=== PATIENT | male | born 1985 | race Caucasian/White ===

== ENCOUNTER 2017-06-14 01:20 | Observation (INO) | payer MEDICAID, SELFPAY ==
[2017-06-14] VITALS (9 sets, daily range): BP systolic 96–145; BP diastolic 57–107; PULSE 70–108; RESP 14–20; TEMP 36.5–36.9; O2SAT 96–100; BMI 20.1; BMI 19.5
--- NOTE | 2017-06-14 01:26 | HMH.EDGENADL ---
ED Disposition Clinical Impression: Exacerbation of Crohn's disease Disposition: Still a Patient Condition on Discharge: Fair - Critical Care Critical Care Time: No Attestation: On , the high probability of a clinically significant, sudden or life threatening deterioration of the following system(s) required my full and direct attention, intervention and personal management. The time I documented below is in addition to time spent performing reported procedures but includes the following listed in this critical care notation. Medical Decision Making Vital Signs: 06/14/17 01:26 Temperature 97.7 F Temperature Source Oral Pulse Rate [Left Radial] 85 Respiratory Rate 20 Blood Pressure [Right Arm] 145/107 Blood Pressure Mean [Right Arm] 119 Blood Pressure Source [Right Arm] Automatic Cuff Blood Pressure Position [Right Arm] Sitting 02 Sat by Pulse Oximetry 100 Oxygen Delivery Method Room Air - Lab Data Lab Results 06/14/17 01:45: WBC 7.1, RBC 4.66, Hgb 13.5 L, Hct 42.9, MCV 92.1, MCH 29.0, MCHC 31.5 L, RDW 13.3, Plt Count 310, MPV 7.4, Neut % (Auto) 65.1, Lymph % (Auto) 27.4, [place] % (Auto) 6.2, Eos % (Auto) 1.0, Baso % (Auto) 0.3, Neut # (Auto) 4.6, Lymph # (Auto) 2.0, [place] # (Auto) 0.4, Eos # (Auto) 0.1, Baso # (Auto) 0.0 06/14/17 01:45: Sodium 139, Potassium 3.7, Chloride 106, Carbon Dioxide 28, Anion Gap 8.7, BUN 9, Creatinine 0.79, Estimated Creat Clear 107, Estimated GFR 113, Est GFR ( Amer) 137, Glucose 89, Calcium 8.3 L, Total Bilirubin 0.2, AST 7 L, ALT 21, Alkaline Phosphatase 74, Total Protein 7.6, Albumin 3.9, Globulin 3.7 H, Albumin/Globulin Ratio 1.1, Amylase 53 06/14/17 01:45: Lipase 139 Result diagrams: 06/14/17 01:45 06/14/17 01:45 Orders (Tests/Meds): ED MEDICATIONS Generic Name Dose Route Start Last Admin Trade Name Freq PRN Reason Stop Dose Admin Non-Formulary Medication 12 mcg 06/14/17 05:15 Fentanyl [Duragesic] TD 07/14/17 05:14 Q72H DAVID Oxycodone/Acetaminophen 1 each 06/14/17 05:15 Percocet 7.5/325mg Tablet PO 07/14/17 05:14 Q6HP PRN pain Discontinued Medications Generic Name Dose Route Start Last Admin Trade Name Freq PRN Reason Stop Dose Admin Diatrizoate Meglum/Diatrizoate Sod 30 ml 06/14/17 01:45 06/14/17 01:46 Gastrografin 66%-10% 30ml PO 06/14/17 01:46 30 ml ONCE ONE Administration Diatrizoate Meglum/Diatrizoate Sod 30 ml 06/14/17 04:19 06/14/17 04:25 Rad-Gastrografin (66%-10%);120ml PO 06/14/17 04:20 30 ml ONCE ONE Administration Iopamidol 75 ml 06/14/17 04:19 06/14/17 04:25 [id number]; 75ml Vial IV 06/14/17 04:20 75 ml ONCE ONE Administration Methylprednisolone Sodium Succinate 125 mg 06/14/17 05:07 06/14/17 05:10 Solu-Medrol 125mg/2ml Vial IV 06/14/17 05:08 125 mg ONCE ONE Administration Morphine Sulfate 5 mg 06/14/17 01:49 06/14/17 01:54 Morphine 5mg/Ml Syringe IV 06/14/17 01:50 5 mg ONCE ONE Administration Morphine Sulfate 4 mg 06/14/17 02:21 06/14/17 02:34 Morphine 4mg/Ml Syringe IV 06/14/17 02:22 4 mg ONCE ONE Administration Ondansetron HCl 4 mg 06/14/17 01:49 06/14/17 01:54 Zofran 4mg/2ml Vial IV 06/14/17 01:50 4 mg ONCE ONE Administration Sodium Chloride 1,000 ml 06/14/17 02:21 06/14/17 02:33 Sod Chlor 0.9% 1000ml Bag IV 06/14/17 02:22 1,000 ml BOLUS ONE Administration Sodium Chloride 10 ml 06/14/17 04:19 06/14/17 04:25 Rad-Saline Flush 10ml Syringe IV 06/14/17 04:20 10 ml ONCE ONE Administration ORDERS Category Date Time Status CT abdomen pelvis w con Stat Cat Scan 06/14/17 01:40 Taken - CT Data CT Scan: Abdomen, Pelvis Time Received: 04:[address] Reviewed: Yes: I have viewed the radiologist's interpretation Findings Narrative: CT scan interpreted by [facility] radiologist. Faxed report received and reviewed: Segment of marked edematous mucosal wall thickening in the posterior mid upper ri
--- NOTE | 2017-06-14 01:30 | ED_ITS ---
ED Disposition Clinical Impression: Exacerbation of Crohn's disease Disposition: Still a Patient Condition on Discharge: Fair - Critical Care Critical Care Time: No Attestation: On , the high probability of a clinically significant, sudden or life threatening deterioration of the following system(s) required my full and direct attention, intervention and personal management. The time I documented below is in addition to time spent performing reported procedures but includes the following listed in this critical care notation. Medical Decision Making Vital Signs: 06/14/17 01:26 Temperature 97.7 F Temperature Source Oral Pulse Rate [Left Radial] 85 Respiratory Rate 20 Blood Pressure [Right Arm] 145/107 Blood Pressure Mean [Right Arm] 119 Blood Pressure Source [Right Arm] Automatic Cuff Blood Pressure Position [Right Arm] Sitting 02 Sat by Pulse Oximetry 100 Oxygen Delivery Method Room Air - Lab Data Lab Results 06/14/17 01:45: WBC 7.1, RBC 4.66, Hgb 13.5 L, Hct 42.9, MCV 92.1, MCH 29.0, MCHC 31.5 L, RDW 13.3, Plt Count 310, MPV 7.4, Neut % (Auto) 65.1, Lymph % (Auto ) 27.4, [place] % (Auto) 6.2, Eos % (Auto) 1.0, Baso % (Auto) 0.3, Neut # (Auto) 4.6, Lymph # (Auto) 2.0, [place] # (Auto) 0.4, Eos # (Auto) 0.1, Baso # (Auto) 0.0 06/14/17 01:45: Sodium 139, Potassium 3.7, Chloride 106, Carbon Dioxide 28, Anion Gap 8.7, BUN 9, Creatinine 0.79, Estimated Creat Clear 107, Estimated GFR 113, Est GFR ( Amer) 137, Glucose 89, Calcium 8.3 L, Total Bilirubin 0.2 , AST 7 L, ALT 21, Alkaline Phosphatase 74, Total Protein 7.6, Albumin 3.9, Globulin 3.7 H, Albumin/Globulin Ratio 1.1, Amylase 53 06/14/17 01:45: Lipase 139 Result diagrams: 06/14/17 01:45 06/14/17 01:45 Orders (Tests/Meds): ED MEDICATIONS Generic Name Dose Route Start Last Admin Trade Name Freq PRN Reason Stop Dose Admin Non-Formulary Medication 12 mcg 06/14/17 05:15 Fentanyl [Duragesic] TD 07/14/17 05:14 Q72H DAVID Oxycodone/Acetaminophen 1 each 06/14/17 05:15 Percocet 7.5/325mg Tablet PO 07/14/17 05:14 Q6HP PRN pain Discontinued Medications Generic Name Dose Route Start Last Admin Trade Name Freq PRN Reason Stop Dose Admin Diatrizoate Meglum/Diatrizoate Sod 30 ml 06/14/17 01:45 06/14/17 01:46 Gastrografin 66%-10% 30ml PO 06/14/17 01:46 30 ml ONCE ONE Administration Diatrizoate Meglum/Diatrizoate Sod 30 ml 06/14/17 04:19 06/14/17 04:25 Rad-Gastrografin (66%-10%);120ml PO 06/14/17 04:20 30 ml ONCE ONE Administration Iopamidol 75 ml 06/14/17 04:19 06/14/17 04:25 [id number]; 75ml Vial IV 06/14/17 04:20 75 ml ONCE ONE Administration Methylprednisolone Sodium Succinate 125 mg 06/14/17 05:07 06/14/17 05:10 Solu-Medrol 125mg/2ml Vial IV 06/14/17 05:08 125 mg ONCE ONE Administration Morphine Sulfate 5 mg 06/14/17 01:49 06/14/17 01:54 Morphine 5mg/Ml Syringe IV 06/14/17 01:50 5 mg ONCE ONE Administration Morphine Sulfate 4 mg 06/14/17 02:21 06/14/17 02:34 Morphine 4mg/Ml Syringe IV 06/14/17 02:22 4 mg ONCE ONE Administration Ondansetron HCl 4 mg 06/14/17 01:49 06/14/17 01:54 Zofran 4mg/2ml Vial IV 06/14/17 01:50 4 mg ONCE ONE Administration
--- NOTE | 2017-06-14 01:40 | CT_ITS ---
CT abdomen pelvis w con Ordering Physician: Carlos Mercedes MD HISTORY: ITS.REASON: pain 32 years: Male Right upper quadrant pain and history of Crohn's disease TECHNIQUE: Helical CT scans abdomen pelvis. 35 cc [id number] utilized along with enteric Gastroview contrast COMPARISON :CT abdomen and pelvis May 2015 FINDINGS Lung bases, clear. Heart normal size.Borderline thickening at the GE junction Abdomen portable/ Gallbladder : Gallbladder distended measuring 14 cm length. No wall thickening. Cholelithiasis. Note 3 mm gallstone towards neck of gallbladder(coronal slice 30, axial 27),. Also note a small 4 mm calcification towards fundus gallbladder either reflecting a small flat stone or early gallbladder wall calcification (axial slice 57, sagittal 18). No nodule or mass here. There is no gallbladder wall thickening question some mild stranding appearance in the fat posterior the gallbladder. Initially question could reflect inflammation but note a similar appearance was seen in this area on previous CT studies here thus may merely reflect chronic changes. Consider follow-up ultrasound and rolled lateral particularly if persistent right upper quadrant pain. Ileostomy again noted at RLQ quadrant with removal majority if not all of the large bowel.. Enteric oral contrast is seen throughout majority of the small bowel-but no oral contrast is seen at the distal most small bowel loops leading to this ileostomy.... Small bowel loops are nondilated. Stomach is mildly distended and dilated and contains generous residual oral contrast. This appearance could reflect some mild ileus. The [facility] report described wall thickening of the bowel loop at the right upper quadrant.-In with this I believe there is some mild wall thickening in the region second and third portion of duodenum which could impair gastric outlet. Clips & Postsurgical changes and elsewhere in the abdomen. Likely multiple previous surgeries . Understand from supplied history the majority if not all rectum is been removed. There is residual density with region of rectum which could reflect a rectal stump with stable irregular contour. Patient In either case appearance here is unchanged irregular soft tissue density here, similar to 2016. Moderate size prostate. Bladder unremarkable moderately distended Kidneys appear normal.. Adrenals unremarkable. Pancreas unremarkable. The common duct doesn't not appear to be distended at this level. Upper normal Central intrahepatic biliary radicles. Liver otherwise unremarkable. No free fluid or free air within abdomen or pelvis ------IMPRESSION 1. Cholelithiasis with Distended gallbladder-. No definitive wall thickening but Gallbladder 14 cm length.. Suggest follow-up RUQ ultrasound & follow-up relevant laboratory RUQ pain persist. TwoGallstones noted: Tiny just over 2 mm gallstone towards neck of gallbladder, which was Not reported by [facility] report.. The Small gallstone or early or GB wall calcification towards fundus was noted 2. Mild to moderate bowel wall thickening at second & third portion of the duodenum.-Suspect for inflammation & enteritis here as was reported by [facility]. This bowel wall thickening located just medial to the dilated gallbladder, & May slight impair gastric emptying noting slight distended stomach with generous residual contrast & food 3. Ileostomy on the right, with colectomy again evident. Stable irregular soft tissue appearance appearance in the region rectum, with possible residual rectal stump
[2017-06-14 01:55] LABS: Basophils % 0.3 % (0.1-2.0); Eosinophils # 0.1 K/mm3 (0.0-0.4); Hematocrit 42.9 % (42.0-52.0); Hemoglobin 13.5 g/dL (14.1-18.0); Lymphocytes % 27.4 K/mm3 (10-50); Mean Corpuscular HGB Conc 31.5 g/dL (31.8-35.4); Mean Corpuscular Volume 92.1 fl (80-94); Mean Platelet Volume 7.4 fl (7.4-10.4); Monocytes # 0.4 K/mm3 (0.1-1.0); Monocytes % 6.2 % (1.7-9.3); Neutrophils # 4.6 K/mm3 (1.8-7.8); Neutrophils % 65.1 % (37.0-80.0); Platelet Count 310 K/mm3 (142-424); Red Blood Count 4.66 M/mm3 (4.60-6.20); Red Cell Distribution Width 13.3 % (11.5-17.5); White Blood Count 7.1 K/mm3 (4.8-10.8)
[2017-06-14 02:08] LABS: Alanine Aminotransferase 21 U/L (12-78); Albumin Level 3.9 gm/dL (3.4-5.0); Albumin/Globulin Ratio 1.1 (1.1-1.8); Alkaline Phosphatase 74 U/L (46-116); Amylase 53 U/L (25-125); Anion Gap 8.7 mEq/L (5-15); Aspartate Amino Transferase 7 U/L (15-37); Bilirubin,Total 0.2 mg/dL (0.2-1.0); Blood Urea Nitrogen 9 mg/dL (7-18); Calcium 8.3 mg/dL (8.5-10.1); Carbon Dioxide 28 mmol/L (21.0-32.0); Chloride 106 mmol/L (98-107); Creatinine Clearance Estimated 107 mL/min (0-300); Creatinine,Serum 0.79 mg/dL (0.70-1.30); Estimated Glomerular Filt Rate 113 ml/min (>60); GFR (African American) 137 ML/MIN (>60); Globulin 3.7 gm/dl (1.3-3.2); Glucose 89 mg/dL (74-106); Potassium 3.7 mmoL/L (3.5-5.1); Sodium 139 mmol/L (136-145); Total Protein,Serum 7.6 gm/dL (6.4-8.2)
--- NOTE | 2017-06-14 03:00 | PC.NURSE ---
pt appears in no acute distress after first dose of pain medication, commenting on my footwear, pt received second dose of morphine, opiate tolerant per Dr, pt neglected to mention percocet during triage
[2017-06-14 03:21] LABS: Lipase 139 u/L (73-393)
--- NOTE | 2017-06-14 04:46 | PC.NURSE ---
Dr Mercedes contacted regarding plan to admit vs discharge
--- NOTE | 2017-06-14 05:30 | PC.NURSE ---
PT FULL CODE, REPORT FROM NUHA IN ER
--- NOTE | 2017-06-14 06:44 | PC.NURSE ---
NEW ADMIT, EXACERBATION OF CROHN'S. C/O RUQ PAIN, CT IN ER SHOWED 4MM GALL STONE WELL. BREATH SOUNDS EQUAL AND CLEAR. NO OTHER COMPLAINTS. NPO FOR CONSULT DR CARDOSO THIS AM. THEN REGULAR DIET. FAMILY MEMBER AT BEDSIDE. PT STABLE. WILL CONTINUE TO MONITOR. REPORT TO BE GIVEN TO ONCOMING NURSE.
--- NOTE | 2017-06-14 07:13 | PC.NURSE ---
REPORT GIVEN TO Marisela MARROQUIN W/C
--- NOTE | 2017-06-14 08:35 | HMH.PHAVTE ---
[facility] Pharmacy VTE Monitoring - Patient Demographics Admission date: 06/14/17 Report Date: 06/14/17 Time: 08:35 Allergies/Adverse Reactions: Patient Allergies infliximab [INFLIXIMAB] Allergy (Unknown, Verified 06/14/17 01:46) metronidazole [METRONIDAZOLE] Allergy (Unknown, Verified 06/14/17 01:46) naproxen [NAPROXEN] Allergy (Unknown, Verified 06/14/17 01:46) promethazine [PROMETHAZINE] Allergy (Unknown, Verified 06/14/17 01:46) propofol [PROPOFOL] Allergy (Unknown, Verified 06/14/17 01:46) Height: 1.68 m Weight: 55.066 kg Patient Problems: Current Active Problems Exacerbation of Crohn's disease (Acute) - VTE Risk Labs: VTE Related Lab Results Hgb 13.5 g/dL (14.1-18.0) L 06/14/17 01:45 Hct 42.9 % (42.0-52.0) 06/14/17 01:45 Plt Count 310 K/mm3 (142-424) 06/14/17 01:45 BUN 9 mg/dL (7-18) 06/14/17 01:45 Creatinine 0.79 mg/dL (0.70-1.30) 06/14/17 01:45 Estimated Creat Clear 107 mL/min (0-300) 06/14/17 01:45 Was VTE Risk Assessment Performed: Yes VTE Score: 0 VTE Risk Level: Very Low Risk - Prophylaxis VTE Prophylaxis Ordered?: Yes Types of VTE Prophylaxis: TEDS Knee High Location of Applied Device: Bilateral Lower Extremeties - VTE Diagnosis Confirmed Treatment or plan recommended: Continue Current Treatment
--- NOTE | 2017-06-14 09:31 | HMH.HP ---
*Admission Date: 06/14/17 *Chief complaint: Abdominal Pain *History of present illness: 32 year old male with a long history of Crohn's disease requiring multiple surgeries including an ileostomy, presented to [facility] ER last night complaining of right upper quadrant abdominal pain. Patient states the pain has been coming and going for the past 4 or 5 months. He usually has 2 or 3 episodes per month and the pain only last for a few hours and then spontaneously resolves. Last night his pain started after supper and lasted 8 hours, he denies vomiting and change in ileostomy output. The patient was admitted at [facility] in November of 2015 due to an upper GI bleed. He had a scope and transfusion of 2 units of PRBCs at that time. He has not followed up in my office since that time and he has not seen his GI specialist, Dr. Bhardwaj at in the IBD clinic. Patient has only been going to a pain management doctor in [facility] for treatment. He states he last saw them a month ago and was referred to a new doctor due to his insurance changing. He does not have an appointment there until the of this month. [facility] History I have reviewed the patient's past medical history: Yes Medical History: Reports:: Anxiety, Depression, Gastrointestinal Bleed, Ulcer (peptic and duodenal) Denies:: Cancer, Diabetes Mellitus Type 1, Diabetes Mellitus Type 2, MRSA Other Medical History: Reports: Anemia, Other (Crohn's disease, gallstone, chronic pain). Denies: Blood Transfusion Reaction Other Surgeries: Yes: Colon Resection, Other (BACK SURGERY; RECTUM REMOVED, Ileostomy) Amputation: No Fractures: No - *Social History Educational Level: Completed College Smoking Status: Former smoker Tobacco Type: cigarettes Alcohol Intake: never - Psychiatric History Expresses thoughts of harming self/others: None Suicide Plan Description: No Plan *Family Hx:: No significant family history Review of Systems - Constitutional Denies chills, Denies fever(s) - Eyes Denies blurry vision - *Cardiovascular Denies chest pain - *Respiratory Denies cough - *Gastrointestinal Denies vomiting blood, Denies bright, red blood in stools - *Genitourinary Denies difficulty urinating - *Musculoskeletal Denies back pain - Integumentary/Breasts Denies rash - *Neurologic Denies abnormal walking - Psychiatric Denies abnormal sleep pattern - Hematologic/Lymphatic Denies easy bruising Meds Home Medications Medication Instructions Recorded Confirmed Type Oxycodone HCl/Acetaminophen 7.5 mg PO BIDP PRN 06/14/17 06/14/17 History [Percocet 7.5/325mg tablet] Pantoprazole Sodium [Protonix 40mg 40 mg PO BID 06/14/17 06/14/17 History tablet] fentaNYL [Duragesic] 12 mcg TD Q72H 06/14/17 06/14/17 History Allergies Allergy/AdvReac Type Severity Reaction Status Date / Time infliximab [INFLIXIMAB] Allergy Unknown Verified 06/14/17 01:46 metronidazole [METRONIDAZOLE] Allergy Unknown Verified 06/14/17 01:46 naproxen [NAPROXEN] Allergy Unknown Verified 06/14/17 01:46 promethazine [PROMETHAZINE] Allergy Unknown Verified 06/14/17 01:46 propofol [PROPOFOL] Allergy Unknown Verified 06/14/17 01:46 Exam Vital signs and Labs for Last 24 Hours: Temp Pulse Resp BP Pulse Ox 98.3 F 93 H 16 119/77 96 06/14/17 07:58 06/14/17 07:58 06/14/17 07:58 06/14/17 07:58 06/14/17 08:00 I & O for Last 24 hours: Intake & Output 06/11/17 06/12/17 06/13/17 06/14/17 11:59 11:59 11:59 11:59 Intake Total 179 / 179 Balance 179 / 179 Weight 121 lb 4.068 oz - Constitutional no acute distress - *Routine HEENT Exam Eye: Present: PERRL ENT: Present: mucous membranes moist - *Routine Neck Exam Present: supple, full ROM - *Routine Respiratory Exam Present: CTA bilaterally - *Routine Cardiovascular Exam Present: RRR - *Routine Abdominal Exam Present: soft, normoactive bowel sounds, surgical scars, ostomy. Absent: tenderness, dis
--- NOTE | 2017-06-14 09:39 | P.HP_ITS ---
*Admission Date: 06/14/17 *Chief complaint: Abdominal Pain *History of present illness: 32 year old male with a long history of Crohn's disease requiring multiple surgeries including an ileostomy, presented to [facility] ER last night complaining of right upper quadrant abdominal pain. Patient states the pain has been coming and going for the past 4 or 5 months. He usually has 2 or 3 episodes per month and the pain only last for a few hours and then spontaneously resolves. Last night his pain started after supper and lasted 8 hours, he denies vomiting and change in ileostomy output. The patient was admitted at [facility] in November of 2015 due to an upper GI bleed. He had a scope and transfusion of 2 units of PRBCs at that time. He has not followed up in my office since that time and he has not seen his GI specialist, Dr. Bhardwaj at in the IBD clinic. Patient has only been going to a pain management doctor in [facility] for treatment. He states he last saw them a month ago and was referred to a new doctor due to his insurance changing. He does not have an appointment there until the of this month. [facility] History I have reviewed the patient's past medical history: Yes Medical History: Reports:: Anxiety, Depression, Gastrointestinal Bleed, Ulcer ( peptic and duodenal) Denies:: Cancer, Diabetes Mellitus Type 1, Diabetes Mellitus Type 2, MRSA Other Medical History: Reports: Anemia, Other (Crohn's disease, gallstone, chronic pain). Denies: Blood Transfusion Reaction Other Surgeries: Yes: Colon Resection, Other (BACK SURGERY; RECTUM REMOVED, Ileostomy) Amputation: No Fractures: No - *Social History Educational Level: Completed College Smoking Status: Former smoker Tobacco Type: cigarettes Alcohol Intake: never - Psychiatric History Expresses thoughts of harming self/others: None Suicide Plan Description: No Plan *Family Hx:: No significant family history Review of Systems - Constitutional Denies chills, Denies fever(s) - Eyes Denies blurry vision - *Cardiovascular Denies chest pain - *Respiratory Denies cough - *Gastrointestinal Denies vomiting blood, Denies bright, red blood in stools - *Genitourinary Denies difficulty urinating - *Musculoskeletal Denies back pain - Integumentary/Breasts Denies rash - *Neurologic Denies abnormal walking - Psychiatric Denies abnormal sleep pattern - Hematologic/Lymphatic Denies easy bruising Meds Home Medications Medication Instructions Recorded Confirmed Type Oxycodone HCl/Acetaminophen 7.5 mg PO BIDP PRN 06/14/17 06/14/17 History [Percocet 7.5/325mg tablet] Pantoprazole Sodium [Protonix 40mg 40 mg PO BID 06/14/17 06/14/17 History tablet] fentaNYL [Duragesic] 12 mcg TD Q72H 06/14/17 06/14/17 History Allergies Allergy/AdvReac Type Severity Reaction Status Date / Time infliximab [INFLIXIMAB] Allergy Unknown Verified 06/14/17 01:46 metronidazole [METRONIDAZOLE] Allergy Unknown Verified 06/14/17 01:46 naproxen [NAPROXEN] Allergy Unknown Verified 06/14/17 01:46 promethazine [PROMETHAZINE] Allergy Unknown Verified 06/14/17 01:46 propofol [PROPOFOL] Allergy Unknown Verified 06/14/17 01:46 Exam Vital signs and Labs for Last 24 Hours: Temp Pulse Resp BP Pulse Ox 98.3 F 93 H 16 119/77 96 06/14/17 07:58 06/14/17 07:58 06/14/17 07:58 06/14/17 07:58 06/14/17 08:00 I & O for Last 24 ho
--- NOTE | 2017-06-14 18:04 | PC.NURSE ---
PT IS ALERT AND ORIENTED X3. ABDOMEN IS SOFT, NON-TENDER AND ACTIVE BOWEL SOUNDS IN ALL QUADS. PT DENIES N/V. PAIN MEDICATION ADMINISTERED PRN. PT TOLERATED A REGULAR DIET AT DINNER, CONSUMED 100% OF MEAL. PT AMBULATED AROUND ENTIRE UNIT SEVERAL TIMES THROUGHOUT SHIFT WITH FATHER. VSS. NO S/S OF DISTRESS NOTED. FALL PREVENTION EDUCATION PROVIDED, SAFETY MEASURES IN PLACE. WILL CONTINUE TO MONITOR.
--- NOTE | 2017-06-14 19:15 | PC.NURSE ---
PT FULL CODE, REPORT FROM OLIVERIO
--- NOTE | 2017-06-15 03:43 | PC.NURSE ---
PT SLEPT LONG INTERVALS. C/O PAIN X1 OF THIS TIME REQUIRING PRN PAIN MEDICATION. BREATH SOUNDS EQUAL AND CLEAR. PT DID 4 LAPS AROUND FLOOR BEGINNING OF SHIFT. IV SECURE AND PATENT. PT STABLE. WILL CONTINUE TO MONITOR. REPORT TO ONCOMING NURSE.
[2017-06-15 04:30] VITALS: BP 95/55; PULSE 71; RESP 20; TEMP 36.4; O2SAT 96
--- NOTE | 2017-06-15 04:43 | PC.NURSE ---
nurse notified of pts bp
--- NOTE | 2017-06-15 06:24 | PC.NURSE ---
PT HAS A OSTOMY & DOES OWN CARE
[2017-06-15 06:36] LABS: Hematocrit 35.6 % (42.0-52.0); Hemoglobin 11.3 g/dL (14.1-18.0); Lymphocytes % 13.7 K/mm3 (10-50); Mean Corpuscular HGB Conc 31.8 g/dL (31.8-35.4); Mean Corpuscular Hemoglobin 29.5 pg (27.0-31.2); Mean Corpuscular Volume 92.8 fl (80-94); Mean Platelet Volume 7.3 fl (7.4-10.4); Monocytes # 0.3 K/mm3 (0.1-1.0); Monocytes % 3.4 % (1.7-9.3); Neutrophils # 6.1 K/mm3 (1.8-7.8); Neutrophils % 82.8 % (37.0-80.0); Platelet Count 252 K/mm3 (142-424); Red Blood Count 3.83 M/mm3 (4.60-6.20); Red Cell Distribution Width 13.4 % (11.5-17.5); White Blood Count 7.3 K/mm3 (4.8-10.8)
[2017-06-15 06:43] LABS: Anion Gap 10.9 mEq/L (5-15); Blood Urea Nitrogen 8 mg/dL (7-18); Carbon Dioxide 24 mmol/L (21.0-32.0); Chloride 110 mmol/L (98-107); Creatinine Clearance Estimated 118 mL/min (0-300); Creatinine,Serum 0.69 mg/dL (0.70-1.30); Estimated Glomerular Filt Rate 132 ml/min (>60); GFR (African American) 160 ML/MIN (>60); Glucose 117 mg/dL (74-106); Potassium 3.9 mmoL/L (3.5-5.1); Sodium 141 mmol/L (136-145)
--- NOTE | 2017-06-15 07:19 | PC.NURSE ---
REPORT GIVEN TO Gloria ARELLANO W/C
[2017-06-15 08:05] VITALS: BP 104/61; PULSE 65; RESP 18; TEMP 36.9; O2SAT 97
--- NOTE | 2017-06-15 08:15 | HMH.ACPN2 ---
<Belkis Grider - Last Filed: 06/15/17 08:15> Internal Medicine - PN: Subj *Date: 06/15/17 *Time: 08:15 Interval history: Patient awakened for exam. Denies pain and shortness of breath. Has had no abdominal pain. He ate dinner last night without a problem. Bowels are moving and he is voiding qs Her nursing: He wishes to see Dr. López for future care who is not available today. Would therefore like to see him on an outpatient basis Exam Vital signs and Labs for Last 24 Hours: Temp Pulse Resp BP Pulse Ox 98.4 F 65 18 104/61 97 06/15/17 08:05 06/15/17 08:05 06/15/17 08:05 06/15/17 08:05 06/15/17 08:05 Laboratory Results - last 24 hr 06/15/17 06:05: WBC 7.3, RBC 3.83 L, Hgb 11.3 L, Hct 35.6 L, MCV 92.8, MCH 29.5, MCHC 31.8, RDW 13.4, Plt Count 252, MPV 7.3 L, Neut % (Auto) 82.8 H, Lymph % (Auto) 13.7, [place] % (Auto) 3.4, Eos % (Auto) 0.0 L, Baso % (Auto) 0.0 L, Neut # (Auto) 6.1, Lymph # (Auto) 1.0, [place] # (Auto) 0.3, Eos # (Auto) 0.0, Baso # (Auto) 0.0 06/15/17 06:05: Sodium 141, Potassium 3.9, Chloride 110 H, Carbon Dioxide 24, Anion Gap 10.9, BUN 8, Creatinine 0.69 L, Estimated Creat Clear 118, Estimated GFR 132, Est GFR ( Amer) 160, Glucose 117 H I & O for Last 24 hours: Intake & Output 06/12/17 06/13/17 06/14/17 06/15/17 11:59 11:59 11:59 11:59 Intake Total 179 / 179 2252 / 2252 Balance 179 / 179 2252 / 2252 Weight 121 lb 4.068 oz - Constitutional no acute distress Comments: Awakened for exam - *Routine Respiratory Exam Present: CTA bilaterally (A and P) - *Routine Cardiovascular Exam Present: RRR - *Routine Abdominal Exam Present: soft, normoactive bowel sounds. Absent: tenderness, distended Comments: Ileostomy in place - *Routine Extremities Exam Absent: edema, calf tenderness - *Routine Neurological Exam Present: alert, oriented X3 Assessment and Plan (1) Exacerbation of Crohn's disease Current visit: Yes Status: Acute Qualifiers: Digestive disease complication type: without complication Qualified Code(s): K50.90 - Crohn's disease, unspecified, without complications Category: Medical Code(s): K50.90 - Crohn's disease, unspecified, without complications (2) Abdominal pain, RUQ Current visit: Yes Status: Acute Category: Medical Code(s): R10.11 - Right upper quadrant pain (3) Chronic narcotic use Current visit: Yes Status: Acute Category: Social Hx Code(s): F11.90 - Opioid use, unspecified, uncomplicated (4) Non-compliance Current visit: Yes Status: Acute Category: Medical Code(s): Z91.19 - Patient's noncompliance with other medical treatment and regimen - Assessment and plan all Dx Assessment and Plan for all problems:: Patient will probably be discharged today. Follow up care as per Dr. Mercedes. <Carlos Mercedes - Last Filed: 06/15/17 08:51> Internal Medicine - PN: Subj *Date: 06/15/17 *Time: 08:50 Exam Vital signs and Labs for Last 24 Hours: Temp Pulse Resp BP Pulse Ox 98.4 F 65 18 104/61 97 06/15/17 08:05 06/15/17 08:05 06/15/17 08:05 06/15/17 08:05 06/15/17 08:05 Laboratory Results - last 24 hr 06/15/17 06:05: WBC 7.3, RBC 3.83 L, Hgb 11.3 L, Hct 35.6 L, MCV 92.8, MCH 29.5, MCHC 31.8, RDW 13.4, Plt Count 252, MPV 7.3 L, Neut % (Auto) 82.8 H, Lymph % (Auto) 13.7, [place] % (Auto) 3.4, Eos % (Auto) 0.0 L, Baso % (Auto) 0.0 L, Neut # (Auto) 6.1, Lymph # (Auto) 1.0, [place] # (Auto) 0.3, Eos # (Auto) 0.0, Baso # (Auto) 0.0 06/15/17 06:05: Sodium 141, Potassium 3.9, Chloride 110 H, Carbon Dioxide 24, Anion Gap 10.9, BUN 8, Creatinine 0.69 L, Estimated Creat Clear 118, Estimated GFR 132, Est GFR ( Amer) 160, Glucose 117 H I & O for Last 24 hours: Intake & Output 06/12/17 06/13/17 06/14/17 06/15/17 11:59 11:59 11:59 11:59 Intake Total 179 / 179 2252 / 2252 Balance 179 / 179 2252 / 2252 Weight 121 lb 4.068 oz Assessment and Plan (1) Exacerbat
--- NOTE | 2017-06-15 08:18 | P.PN_ITS ---
<Belkis Grider - Last Filed: 06/15/17 08:15> Internal Medicine - PN: Subj *Date: 06/15/17 *Time: 08:15 Interval history: Patient awakened for exam. Denies pain and shortness of breath. Has had no abdominal pain. He ate dinner last night without a problem. Bowels are moving and he is voiding qs Her nursing: He wishes to see Dr. López for future care who is not available today. Would therefore like to see him on an outpatient basis Exam Vital signs and Labs for Last 24 Hours: Temp Pulse Resp BP Pulse Ox 98.4 F 65 18 104/61 97 06/15/17 08:05 06/15/17 08:05 06/15/17 08:05 06/15/17 08:05 06/15/17 08:05 Laboratory Results - last 24 hr 06/15/17 06:05: WBC 7.3, RBC 3.83 L, Hgb 11.3 L, Hct 35.6 L, MCV 92.8, MCH 29.5 , MCHC 31.8, RDW 13.4, Plt Count 252, MPV 7.3 L, Neut % (Auto) 82.8 H, Lymph % ( Auto) 13.7, [place] % (Auto) 3.4, Eos % (Auto) 0.0 L, Baso % (Auto) 0.0 L, Neut # ( Auto) 6.1, Lymph # (Auto) 1.0, [place] # (Auto) 0.3, Eos # (Auto) 0.0, Baso # (Auto ) 0.0 06/15/17 06:05: Sodium 141, Potassium 3.9, Chloride 110 H, Carbon Dioxide 24, Anion Gap 10.9, BUN 8, Creatinine 0.69 L, Estimated Creat Clear 118, Estimated GFR 132, Est GFR ( Amer) 160, Glucose 117 H I & O for Last 24 hours: Intake & Output 06/12/17 06/13/17 06/14/17 06/15/17 11:59 11:59 11:59 11:59 Intake Total 179 / 179 2252 / 2252 Balance 179 / 179 2252 / 2252 Weight 121 lb 4.068 oz - Constitutional no acute distress Comments: Awakened for exam - *Routine Respiratory Exam Present: CTA bilaterally (A and P) - *Routine Cardiovascular Exam Present: RRR - *Routine Abdominal Exam Present: soft, normoactive bowel sounds. Absent: tenderness, distended Comments: Ileostomy in place - *Routine Extremities Exam Absent: edema, calf tenderness - *Routine Neurological Exam Present: alert, oriented X3 Assessment and Plan (1) Exacerbation of Crohn's disease Current visit: Yes Status: Acute Qualifiers: Digestive disease complication type: without complication Qualified Code(s) : K50.90 - Crohn's disease, unspecified, without complications Category: Medical Code(s): K50.90 - Crohn's disease, unspecified, without complications (2) Abdominal pain, RUQ Current visit: Yes Status: Acute Category: Medical Code(s): R10.11 - Right upper quadrant pain (3) Chronic narcotic use Current visit: Yes Status: Acute Category: Social Hx Code(s): F11.90 - Opioid use, unspecified, uncomplicated (4) Non-compliance Current visit: Yes Status: Acute Category: Medical Code(s): Z91.19 - Patient's noncompliance with other medical treatment and regimen - Assessment and plan all Dx Assessment and Plan for all problems:: Patient will probably be discharged today. Follow up care as per Dr. Mercedes. <Carlos Mercedes - Last Filed: 06/15/17 08:51> Internal Medicine - PN: Subj *Date: 06/15/17 *Time: 08:50 Exam Vital signs and Labs for Last 24 Hours: Temp Pulse Resp BP Pulse Ox 98.4 F 65 18 104/61 97 06/15/17 08:05 06/15/17 08:05 06/15/17 08:05 06/15/17 08:05 06/15/17 08:05 Laboratory Results - last 24 hr 06/15/17 06:05: WBC 7.3, RBC 3.83 L, Hgb 11.3 L, Hct 35.6 L, MCV 92.8, MCH 29.5 , MCHC 31.8, RDW 13.4, Plt Count 252, MPV 7.3 L, Neut % (Auto) 82.8 H, Lymph % ( Auto) 13.7, [place] % (Auto) 3.4, Eos % (Auto) 0.0 L,
--- NOTE | 2017-06-15 13:03 | HMH.DCSUM ---
General - General Admission date: 06/14/17 Discharge date: 06/15/17 HPI HPI: 32 year old male with a long history of Crohn's disease requiring multiple surgeries including an ileostomy, presented to [facility] ER last night complaining of right upper quadrant abdominal pain. Patient states the pain has been coming and going for the past 4 or 5 months. He usually has 2 or 3 episodes per month and the pain only lasts for a few hours and then spontaneously resolves. Last night, his pain started after supper and lasted 8 hours, he denies vomiting and change in ileostomy output. The patient was admitted at [facility] in November of 2015 due to an upper GI bleed. He had a scope and transfusion of 2 units of PRBCs at that time. He has not followed up in my office since that time and he has not seen his GI specialist, Dr. Bhardwaj at in the IBD clinic. Patient has only been going to a pain management doctor in [facility] for treatment. He states he last saw them a month ago and was referred to a new doctor due to his insurance changing. He does not have an appointment there until the of this month. Objective Vital signs: Temp Pulse Resp BP Pulse Ox 98.4 F 65 18 104/61 97 06/15/17 08:05 06/15/17 08:05 06/15/17 08:05 06/15/17 08:05 06/15/17 08:05 Narrative: - Constitutional no acute distress - *Routine HEENT Exam Eye: Present: PERRL ENT: Present: mucous membranes moist - *Routine Neck Exam Present: supple, full ROM - *Routine Respiratory Exam Present: CTA bilaterally - *Routine Cardiovascular Exam Present: RRR - *Routine Abdominal Exam Present: soft, normoactive bowel sounds, surgical scars, ostomy. Absent: tenderness, distended - *Routine Extremities Exam Absent: cyanosis, clubbing, edema - *Routine Skin Exam Present: intact, scars. Absent: rash - *Routine Neurological Exam Present: alert, oriented X3. Absent: sensory deficit, motor deficit - Routine Psychiatric Exam Present: normal affect Hospital Course Hospital Course: CT report showed an area of inflammed small bowel in the RUQ as well as cholelithiasis with a distended gallbladder. He was started on IV steroids. He requested to find a new doctor to follow his Crohn's disease management even though he had not seen anyone in over 18 months. After one night of steroids, he was feeling much better and had no abdominal pain. He was eating without a problem. Bowels were moving. He was stable to be discharged home on oral prednisone. He wanted to f/u with Dr. López on an outpatient basis for his Crohn's. Results Labs on day of discharge: Labs from last 24 hours 06/15/17 06/15/17 06:05 06:05 WBC 7.3 RBC 3.83 L Hgb 11.3 L Hct 35.6 L MCV 92.8 MCH 29.5 MCHC 31.8 RDW 13.4 Plt Count 252 MPV 7.3 L Neut % (Auto) 82.8 H Lymph % (Auto) 13.7 [place] % (Auto) 3.4 Eos % (Auto) 0.0 L Baso % (Auto) 0.0 L Neut # (Auto) 6.1 Lymph # (Auto) 1.0 [place] # (Auto) 0.3 Eos # (Auto) 0.0 Baso # (Auto) 0.0 Sodium 141 Potassium 3.9 Chloride 110 H Carbon Dioxide 24 Anion Gap 10.9 BUN 8 Creatinine 0.69 L Estimated Creat Clear 118 Estimated GFR 132 Est GFR ( Amer) 160 Glucose 117 H DS: Diagnosis - Discharge Diagnosis (1) Exacerbation of Crohn's disease Status: Acute (2) Abdominal pain, RUQ Status: Acute (3) Chronic narcotic use Status: Acute (4) Non-compliance Status: Acute Discharge Plan - Patient Discharge Instructions ACTIVITY: Continue current activity DIET: continue same diet Patient Instructions: DI for Abdominal Pain-Adult - Follow up Plan Follow up with: Erik López MD [Staff Physician] - 2 weeks (Evaluate for Crohn's management per patient request.) Disposition: Home, Self-[facility] Medications: Home Medications Medication Instructions Recorded Confirmed Type Oxycodone HCl/Acetaminophen 7.5 mg PO BIDP PRN
--- NOTE | 2017-06-15 13:09 | P.DS_ITS ---
General - General Admission date: 06/14/17 Discharge date: 06/15/17 HPI HPI: 32 year old male with a long history of Crohn's disease requiring multiple surgeries including an ileostomy, presented to [facility] ER last night complaining of right upper quadrant abdominal pain. Patient states the pain has been coming and going for the past 4 or 5 months. He usually has 2 or 3 episodes per month and the pain only lasts for a few hours and then spontaneously resolves. Last night, his pain started after supper and lasted 8 hours, he denies vomiting and change in ileostomy output. The patient was admitted at [facility] in November of 2015 due to an upper GI bleed. He had a scope and transfusion of 2 units of PRBCs at that time. He has not followed up in my office since that time and he has not seen his GI specialist, Dr. Bhardwaj at in the IBD clinic. Patient has only been going to a pain management doctor in [facility] for treatment. He states he last saw them a month ago and was referred to a new doctor due to his insurance changing. He does not have an appointment there until the of this month. Objective Vital signs: Temp Pulse Resp BP Pulse Ox 98.4 F 65 18 104/61 97 06/15/17 08:05 06/15/17 08:05 06/15/17 08:05 06/15/17 08:05 06/15/17 08:05 Narrative: - Constitutional no acute distress - *Routine HEENT Exam Eye: Present: PERRL ENT: Present: mucous membranes moist - *Routine Neck Exam Present: supple, full ROM - *Routine Respiratory Exam Present: CTA bilaterally - *Routine Cardiovascular Exam Present: RRR - *Routine Abdominal Exam Present: soft, normoactive bowel sounds, surgical scars, ostomy. Absent: tenderness, distended - *Routine Extremities Exam Absent: cyanosis, clubbing, edema - *Routine Skin Exam Present: intact, scars. Absent: rash - *Routine Neurological Exam Present: alert, oriented X3. Absent: sensory deficit, motor deficit - Routine Psychiatric Exam Present: normal affect Hospital Course Hospital Course: CT report showed an area of inflammed small bowel in the RUQ as well as cholelithiasis with a distended gallbladder. He was started on IV steroids. He requested to find a new doctor to follow his Crohn's disease management even though he had not seen anyone in over 18 months. After one night of steroids, he was feeling much better and had no abdominal pain. He was eating without a problem. Bowels were moving. He was stable to be discharged home on oral prednisone. He wanted to f/u with Dr. López on an outpatient basis for his Crohn 's. Results Labs on day of discharge: Labs from last 24 hours 06/15/17 06/15/17 06:05 06:05 WBC 7.3 RBC 3.83 L Hgb 11.3 L Hct 35.6 L MCV 92.8 MCH 29.5 MCHC 31.8 RDW 13.4 Plt Count 252 MPV 7.3 L Neut % (Auto) 82.8 H Lymph % (Auto) 13.7 [place] % (Auto) 3.4 Eos % (Auto) 0.0 L Baso % (Auto) 0.0 L Neut # (Auto) 6.1 Lymph # (Auto) 1.0 [place] # (Auto) 0.3 Eos # (Auto) 0.0 Baso # (Auto) 0.0 Sodium 141 Potassium 3.9 Chloride 110 H Carbon Dioxide 24 Anion Gap 10.9 BUN 8 Creatinine 0.69 L Estimated Creat Clear 118 Estimated GFR 132 Est GFR ( Amer) 160
== END 2017-06-15 10:37 | disposition home or self-care (01) ==
LOC: ER 05:11 → 2ND 05:18
PROVIDERS: Admitting Provider Family Medicine; Emergency Provider Emergency Medicine; Family Provider Family Medicine; Visit Provider Family Medicine
DX: K50.00 Crohn's disease of small intestine without complications (principal); K80.80 Other cholelithiasis without obstruction; F11.90 Opioid use, unspecified, uncomplicated; Z87.19 Personal history of other diseases of the digestive system; Z91.19 Patient's noncompliance with other medical treatment and regimen
CPT/HCPCS: 74177; 80048; 80053; 82150; 83690; 85025; 90686; 96365; 96374; 96375; 96376; 99283; G0378; J2270; J2405; Q9967

== ENCOUNTER 2017-06-24 05:17 | Emergency (ER) | payer MEDICAID, SELFPAY ==
[2017-06-24 05:22] VITALS: BP 90/40; PULSE 104; RESP 24; TEMP 36.6; O2SAT 97; BMI 19.5
--- NOTE | 2017-06-24 05:33 | CT_ITS ---
CT abdomen pelvis wo con CLINICAL INDICATION: Right upper quadrant pain ITS.REASON: C/O ABDOMINAL PAIN ORDERING PHYSICIAN: Mayo Conde MD PATIENT AGE: 32 years COMPARISON: 06/14/2017 TECHNIQUE: Axial images obtained with sagittal and coronal reformats. PROCEDURE: Oral Contrast: None IV Contrast: None . FINDINGS: No acute finding in the lung bases. The gallbladder is distended. A small calcific density is present in the upper aspect of the gallbladder towards the gallbladder neck similar to the previous exam No radio opaque stones are evident. The liver, spleen, adrenal glands, and pancreas are unremarkable. No renal calculi, ureteral calculi, or hydronephrosis. There is mild distention of the urinary bladder.. Patient has had a prior gastric surgery. Right upper quadrant ostomy noted. No obstruction or free air. No evidence of appendicitis or diverticulitis. There are multiple unopacified bowel loops present within the abdomen/pelvis which could obscure or mimic pathology. If symptoms persists, consider repeating exam with IV and oral contrast administration Prior colectomy. Soft tissue density is present in the pelvis which may represent an abscess measuring 1.5 cm. A small amount gas is noted in this region. Not well demonstrated without IV contrast. Phlegmonous or postsurgical changes are present in the pelvis as well. There may be some thickening of the small bowel loops in the pelvis posterior to the urinary bladder. IMPRESSION: 1. Prior colectomy with right lower quadrant ostomy. 2. Mixed soft tissue density in the pelvis specialist for an abscess with phlegmonous changes versus postsurgical changes. Repeat exam with IV and oral contrast suggested. 3. Distended gallbladder with cholelithiasis
--- NOTE | 2017-06-24 06:00 | HMH.EDGENADL ---
ED Disposition Clinical Impression: Exacerbation of Crohn's disease Qualifiers: Digestive disease complication type: unspecified complication Qualified Code(s): K50.919 - Crohn's disease, unspecified, with unspecified complications Disposition: Home, Self-Care Condition on Discharge: Good Instructions: DI for Chronic Pain -- Adult Additional Instructions: see dr house this week - Critical Care Critical Care Time: No Attestation: On 06/24/17, the high probability of a clinically significant, sudden or life threatening deterioration of the following system(s) required my full and direct attention, intervention and personal management. The time I documented below is in addition to time spent performing reported procedures but includes the following listed in this critical care notation. Medical Decision Making - Medical Records Medical records reviewed: Yes: I reviewed the patient's medical records. Vital Signs: 06/24/17 05:22 Temperature 98 F Temperature Source Oral Pulse Rate [Right Brachial] 104 H Respiratory Rate 24 Blood Pressure [Right Arm] 90/40 Blood Pressure Mean [Right Arm] 56 Blood Pressure Source [Right Arm] Automatic Cuff Blood Pressure Position [Right Arm] Sitting 02 Sat by Pulse Oximetry 97 Oxygen Delivery Method Room Air - Lab Data Lab results reviewed: Yes: I reviewed the patient's lab results. Lab Results 06/24/17 05:35: WBC 9.2, RBC 5.12, Hgb 14.8, Hct 46.7, MCV 91.3, MCH 28.9, MCHC 31.6 L, RDW 13.2, Plt Count 316, MPV 7.0 L, Neut % (Auto) 67.8, Lymph % (Auto) 25.3, [place] % (Auto) 5.9, Eos % (Auto) 0.8, Baso % (Auto) 0.3, Neut # (Auto) 6.2, Lymph # (Auto) 2.3, [place] # (Auto) 0.5, Eos # (Auto) 0.1, Baso # (Auto) 0.0 06/24/17 05:55: Sodium 139, Potassium 3.8, Chloride 103, Carbon Dioxide 28, Anion Gap 11.8, BUN 14, Creatinine 0.82, Estimated Creat Clear 103, Estimated GFR 108, Est GFR ( Amer) 131, Glucose 89, Calcium 8.2 L, Total Bilirubin 0.3, AST 13 L, ALT 27, Alkaline Phosphatase 75, Total Protein 7.5, Albumin 4.0, Globulin 3.5 H, Albumin/Globulin Ratio 1.1, Amylase 46, Lipase 133 Result diagrams: 06/24/17 05:35 06/24/17 05:55 Orders (Tests/Meds): ED MEDICATIONS Discontinued Medications Generic Name Dose Route Start Last Admin Trade Name Lynda PRN Reason Stop Dose Admin Sodium Chloride 500 mls @ 999 mls/hr 06/24/17 05:45 06/24/17 05:35 Sod Chlor 0.9% 1000ml Bag IV 06/24/17 06:15 999 mls/hr .Q31M DAIVD Administration Morphine Sulfate 4 mg 06/24/17 05:33 06/24/17 05:35 Morphine 4mg/Ml Syringe IV 06/24/17 05:34 4 mg ONCE ONE Administration Ondansetron HCl 4 mg 06/24/17 05:33 06/24/17 05:35 Zofran 4mg/2ml Vial IV 06/24/17 05:34 4 mg ONCE ONE Administration ORDERS Category Date Time Status CT abdomen pelvis wo con Stat Cat Scan 06/24/17 05:33 Taken - CT Data CT Scan: Abdomen, Pelvis Time Received: 07:[address] Reviewed: Yes: I have viewed the radiologist's interpretation Preliminary Findings: Abnormal (see report) - Physician Consults Physician Consulted: harsh Reason -: Pt condition - Brooks Inquiry Pt receiving controlled substance: No General Adult HPI - General Chief complaint: PAIN Stated complaint: severe stomach pain Time Seen by Provider: 06/24/17 06:00 Mode of Arrival: Family Vehicle Source of Information: Patient, Relative, Medical Record Limitations: No Limitations Description of Symptoms (Recalled from ER Triage Doc. by RN): C/O SEVERE ABDOMINAL PAIN - History of Present Illness HPI narrative: acute excerbation of chrons disease with pain at osteomy site Onset (ago): day(s) Location: abdomen Severity: moderate Consistency: intermittent - Related Data Home Medications Medication Instructions Recorded Confirmed Pantoprazole Sodium [Protonix 40mg 40 mg PO BID 06/14/17 06/24/17 tablet] fentaNYL [Duragesic] 12 mcg TD Q72H 06/14/17 06/24/17 Allergies Allergy/AdvRe
[2017-06-24 06:09] LABS: Basophils % 0.3 % (0.1-2.0); Eosinophils # 0.1 K/mm3 (0.0-0.4); Eosinophils % 0.8 % (0.1-12.0); Hematocrit 46.7 % (42.0-52.0); Hemoglobin 14.8 g/dL (14.1-18.0); Lymphocytes # 2.3 K/mm3 (0.7-4.5); Lymphocytes % 25.3 K/mm3 (10-50); Mean Corpuscular HGB Conc 31.6 g/dL (31.8-35.4); Mean Corpuscular Hemoglobin 28.9 pg (27.0-31.2); Mean Corpuscular Volume 91.3 fl (80-94); Monocytes # 0.5 K/mm3 (0.1-1.0); Monocytes % 5.9 % (1.7-9.3); Neutrophils # 6.2 K/mm3 (1.8-7.8); Neutrophils % 67.8 % (37.0-80.0); Platelet Count 316 K/mm3 (142-424); Red Blood Count 5.12 M/mm3 (4.60-6.20); Red Cell Distribution Width 13.2 % (11.5-17.5); White Blood Count 9.2 K/mm3 (4.8-10.8)
[2017-06-24 06:18] LABS: Alanine Aminotransferase 27 U/L (12-78); Albumin/Globulin Ratio 1.1 (1.1-1.8); Alkaline Phosphatase 75 U/L (46-116); Amylase 46 U/L (25-125); Anion Gap 11.8 mEq/L (5-15); Aspartate Amino Transferase 13 U/L (15-37); Bilirubin,Total 0.3 mg/dL (0.2-1.0); Blood Urea Nitrogen 14 mg/dL (7-18); Calcium 8.2 mg/dL (8.5-10.1); Carbon Dioxide 28 mmol/L (21.0-32.0); Chloride 103 mmol/L (98-107); Creatinine Clearance Estimated 103 mL/min (0-300); Creatinine,Serum 0.82 mg/dL (0.70-1.30); Estimated Glomerular Filt Rate 108 ml/min (>60); GFR (African American) 131 ML/MIN (>60); Globulin 3.5 gm/dl (1.3-3.2); Glucose 89 mg/dL (74-106); Lipase 133 u/L (73-393); Potassium 3.8 mmoL/L (3.5-5.1); Sodium 139 mmol/L (136-145); Total Protein,Serum 7.5 gm/dL (6.4-8.2)
[2017-06-24 07:40] VITALS: BP 132/89; PULSE 85; RESP 18; TEMP 36.7; O2SAT 97
== END 2017-06-24 07:40 | disposition home or self-care (01) ==
PROVIDERS: Emergency Provider Emergency Medicine; Family Provider Family Medicine
DX: K50.918 Crohn's disease, unspecified, with other complication (principal); R10.9 Unspecified abdominal pain; Z88.6 Allergy status to analgesic agent; Z88.9 Allergy status to unspecified drugs, medicaments and biological substances
CPT/HCPCS: 74176; 80053; 82150; 83690; 85025; 96365; 96374; 96375; 99282; J2405

== ENCOUNTER 2017-06-27 11:39 | Emergency (ER) | payer MEDICAID, SELFPAY ==
[2017-06-27 11:44] VITALS: BP 146/87; PULSE 90; RESP 22; TEMP 37.1; O2SAT 98; BMI 19.5
--- NOTE | 2017-06-27 11:55 | CT_ITS ---
CT abdomen pelvis w con CLINICAL INDICATION: Right upper quadrant pain, Crohn's disease ITS.REASON: RUQ, history of crohns disease ORDERING PHYSICIAN: Kevin Mcgarry MD PATIENT AGE: 32 years COMPARISON: 06/24/2017 TECHNIQUE: Axial images obtained with sagittal and coronal reformats. PROCEDURE: Oral Contrast: Gastroview IV Contrast: 75 mL's of [id number]. FINDINGS: Lung bases are clear. The gallbladder is distended. There is some minimal prominence of the intrahepatic biliary radicles. No focal liver lesion. The spleen, pancreas, adrenal glands, and kidneys have an unremarkable appearance. There is a right lower quadrant ileostomy. Prior colectomy.. No intestinal obstruction or free air. There remains increased soft tissue density pelvic region and presacral area which may be related to some residual inflammatory change/phlegmon. Previously noted fluid collection small focus of gas is no longer apparent. No acute bony anomalies. IMPRESSION: 1. Distended gallbladder with mild prominence of the intrahepatic biliary radicles 2. Prior colectomy with right lower quadrant ileostomy. No intestinal obstruction. 3. Postsurgical changes of the pelvis with residual soft tissue thickening but no obvious abscess
--- NOTE | 2017-06-27 12:02 | HMH.EDABDPAI ---
ED Disposition Clinical Impression: Inflammatory bowel disease (Crohn's disease) Disposition: Xfer Short-Term Hosp Condition on Discharge: Fair Instructions: DI for Acute Abdomen - Critical Care Critical Care Time: No Attestation: On 06/27/17, the high probability of a clinically significant, sudden or life threatening deterioration of the following system(s) required my full and direct attention, intervention and personal management. The time I documented below is in addition to time spent performing reported procedures but includes the following listed in this critical care notation. Medical Decision Making Vital Signs: 06/27/17 11:44 Temperature 98.7 F Temperature Source Oral Pulse Rate [Left Radial] 90 Respiratory Rate 22 Blood Pressure [Right Arm] 146/87 Blood Pressure Mean [Right Arm] 106 Blood Pressure Source [Right Arm] Automatic Cuff Blood Pressure Position [Right Arm] Sitting 02 Sat by Pulse Oximetry 98 Oxygen Delivery Method Room Air - Lab Data Lab Results 06/27/17 12:00: WBC 9.5, RBC 5.19, Hgb 15.0, Hct 49.2, MCV 94.7 H, MCH 28.9, MCHC 30.5 L, RDW 13.3, Plt Count 297, MPV 7.7, Neut % (Auto) 75.1, Lymph % (Auto) 18.4, [place] % (Auto) 5.3, Eos % (Auto) 0.9, Baso % (Auto) 0.3, Neut # (Auto) 7.1, Lymph # (Auto) 1.8, [place] # (Auto) 0.5, Eos # (Auto) 0.1, Baso # (Auto) 0.0 06/27/17 12:00: Sodium 138, Potassium 4.1, Chloride 104, Carbon Dioxide 26, Anion Gap 12.1, BUN 13, Creatinine 0.80, Estimated Creat Clear 105, Estimated GFR 111, Est GFR ( Amer) 135, Glucose 88, Calcium 8.5, Total Bilirubin 0.1 L, AST 19, ALT 34, Alkaline Phosphatase 78, Total Protein 7.9, Albumin 4.0, Globulin 3.9 H, Albumin/Globulin Ratio 1.0 L, Amylase 61 06/27/17 12:00: Lactic Acid 1.0 06/27/17 12:00: Lipase 173 06/27/17 13:28: Urine Color Yellow, Urine Appearance Sl cloudy, Urine pH 6.0, Ur Specific [place] 1.020, Urine Protein Negative, Urine Glucose (UA) Negative, Urine Ketones Negative, Urine Blood Negative, Urine Nitrate Negative, Urine Bilirubin Negative, Urine Urobilinogen 0.2, Ur Leukocyte Esterase Negative, Urine RBC None, Urine WBC None, Ur Squamous Epith Cells Occasional, Urine Bacteria Trace Result diagrams: 06/27/17 12:00 06/27/17 12:00 Orders (Tests/Meds): ED MEDICATIONS Discontinued Medications Generic Name Dose Route Start Last Admin Trade Name Lynda PRN Reason Stop Dose Admin Diatrizoate Meglum/Diatrizoate Sod 30 ml 06/27/17 12:12 06/27/17 12:22 Gastrografin 66%-10% 30ml PO 06/27/17 12:13 30 ml ONCE ONE Administration Famotidine 20 mg 06/27/17 14:20 06/27/17 14:24 Pepcid 20mg/2ml Vial IV 06/27/17 14:21 20 mg ONCE ONE Administration Sodium Chloride 500 mls @ 999 mls/hr 06/27/17 12:00 06/27/17 12:11 Sod Chlor 0.9% 1000ml Bag IV 06/27/17 12:30 Not Given .Q31M DAVID Sodium Chloride 500 mls @ 999 mls/hr 06/27/17 12:15 06/27/17 12:13 Sod Chlor 0.9% 1000ml Bag IV 06/27/17 12:45 Not Given .Q31M DAVID Sodium Chloride 500 mls @ 999 mls/hr 06/27/17 12:15 06/27/17 12:41 Sod Chlor 0.9% 1000ml Bag IV 06/27/17 13:15 Not Given .Q31M DAVID Meperidine HCl 12.5 mg 06/27/17 11:58 06/27/17 12:04 Meperidine 25mg/Ml 1ml Syringe IV 06/27/17 11:59 12.5 mg ONCE ONE Administration Meperidine HCl 12.5 mg 06/27/17 12:53 06/27/17 13:12 Meperidine 25mg/Ml 1ml Syringe IV 06/27/17 12:54 12.5 mg ONCE ONE Administration Methylprednisolone Sodium Succinate 125 mg 06/27/17 14:20 06/27/17 14:24 Solu-Medrol 125mg/2ml Vial IV 06/27/17 14:21 125 mg ONCE ONE Administration Ondansetron HCl 4 mg 06/27/17 12:12 06/27/17 12:13 Zofran 4mg/2ml Vial IV 06/27/17 12:13 4 mg ONCE ONE Administration Promethazine HCl 12.5 mg 06/27/17 11:58 06/27/17 12:14 Phenergan 25mg/Ml 1ml Vial IV 06/27/17 11:59 Not Given ONCE ONE Sodium Chloride 25 ml 06/27/17 11:58 06/27/17 12:11 Sod Chlor 0.9% 25ml Bag IV 06/27/17 11:59 25 ml ONCE O
--- NOTE | 2017-06-27 12:05 | ED_ITS ---
ED Disposition Clinical Impression: Inflammatory bowel disease (Crohn's disease) Disposition: Xfer Short-Term Hosp Condition on Discharge: Fair Instructions: DI for Acute Abdomen - Critical Care Critical Care Time: No Attestation: On 06/27/17, the high probability of a clinically significant, sudden or life threatening deterioration of the following system(s) required my full and direct attention, intervention and personal management. The time I documented below is in addition to time spent performing reported procedures but includes the following listed in this critical care notation. Medical Decision Making Vital Signs: 06/27/17 11:44 Temperature 98.7 F Temperature Source Oral Pulse Rate [Left Radial] 90 Respiratory Rate 22 Blood Pressure [Right Arm] 146/87 Blood Pressure Mean [Right Arm] 106 Blood Pressure Source [Right Arm] Automatic Cuff Blood Pressure Position [Right Arm] Sitting 02 Sat by Pulse Oximetry 98 Oxygen Delivery Method Room Air - Lab Data Lab Results 06/27/17 12:00: WBC 9.5, RBC 5.19, Hgb 15.0, Hct 49.2, MCV 94.7 H, MCH 28.9, MCHC 30.5 L, RDW 13.3, Plt Count 297, MPV 7.7, Neut % (Auto) 75.1, Lymph % (Auto ) 18.4, [place] % (Auto) 5.3, Eos % (Auto) 0.9, Baso % (Auto) 0.3, Neut # (Auto) 7.1, Lymph # (Auto) 1.8, [place] # (Auto) 0.5, Eos # (Auto) 0.1, Baso # (Auto) 0.0 06/27/17 12:00: Sodium 138, Potassium 4.1, Chloride 104, Carbon Dioxide 26, Anion Gap 12.1, BUN 13, Creatinine 0.80, Estimated Creat Clear 105, Estimated GFR 111, Est GFR ( Amer) 135, Glucose 88, Calcium 8.5, Total Bilirubin 0.1 L, AST 19, ALT 34, Alkaline Phosphatase 78, Total Protein 7.9, Albumin 4.0, Globulin 3.9 H, Albumin/Globulin Ratio 1.0 L, Amylase 61 06/27/17 12:00: Lactic Acid 1.0 06/27/17 12:00: Lipase 173 06/27/17 13:28: Urine Color Yellow, Urine Appearance Sl cloudy, Urine pH 6.0, Ur Specific [place] 1.020, Urine Protein Negative, Urine Glucose (UA) Negative, Urine Ketones Negative, Urine Blood Negative, Urine Nitrate Negative, Urine Bilirubin Negative, Urine Urobilinogen 0.2, Ur Leukocyte Esterase Negative, Urine RBC None, Urine WBC None, Ur Squamous Epith Cells Occasional, Urine Bacteria Trace Result diagrams: 06/27/17 12:00 06/27/17 12:00 Orders (Tests/Meds): ED MEDICATIONS Discontinued Medications Generic Name Dose Route Start Last Admin Trade Name Michaq PRN Reason Stop Dose Admin Diatrizoate Meglum/Diatrizoate Sod 30 ml 06/27/17 12:12 06/27/17 12:22 Gastrografin 66%-10% 30ml PO 06/27/17 12:13 30 ml ONCE ONE Administration Famotidine 20 mg 06/27/17 14:20 06/27/17 14:24 Pepcid 20mg/2ml Vial IV 06/27/17 14:21 20 mg ONCE ONE Administration Sodium Chloride 500 mls @ 999 mls/hr 06/27/17 12:00 06/27/17 12:11 Sod Chlor 0.9% 1000ml Bag IV 06/27/17 12:30 Not Given .Q31M DAVID Sodium Chloride 500 mls @ 999 mls/hr 06/27/17 12:15 06/27/17 12:13 Sod Chlor 0.9% 1000ml Bag IV 06/27/17 12:45 Not Given .Q31M DAVID Sodium Chloride 500 mls @ 999 mls/hr 06/27/17 12:15 06/27/17 12:41 Sod Chlor 0.9% 1000ml Bag IV 06/27/17 13:15 Not Given .Q31M DAVID Meperidine HCl 12.5 mg 06/27/17 11:58 06/27/17 12:04 Meperidine 25mg/Ml 1ml Syringe IV 06/27/17 11:59 12.5 mg ONCE ONE Administration Meperidine HCl 12.5 mg 06/27/17 12:53 06/27/17 13:12 Meperidine 25mg/Ml 1m
[2017-06-27 12:22] LABS: Basophils % 0.3 % (0.1-2.0); Eosinophils # 0.1 K/mm3 (0.0-0.4); Eosinophils % 0.9 % (0.1-12.0); Hematocrit 49.2 % (42.0-52.0); Lymphocytes # 1.8 K/mm3 (0.7-4.5); Lymphocytes % 18.4 K/mm3 (10-50); Mean Corpuscular HGB Conc 30.5 g/dL (31.8-35.4); Mean Corpuscular Hemoglobin 28.9 pg (27.0-31.2); Mean Corpuscular Volume 94.7 fl (80-94); Mean Platelet Volume 7.7 fl (7.4-10.4); Monocytes # 0.5 K/mm3 (0.1-1.0); Monocytes % 5.3 % (1.7-9.3); Neutrophils # 7.1 K/mm3 (1.8-7.8); Neutrophils % 75.1 % (37.0-80.0); Platelet Count 297 K/mm3 (142-424); Red Blood Count 5.19 M/mm3 (4.60-6.20); Red Cell Distribution Width 13.3 % (11.5-17.5); White Blood Count 9.5 K/mm3 (4.8-10.8)
--- NOTE | 2017-06-27 12:25 | PC.NURSE ---
pt finished with oral contrast at this time. Lilian in radiology notified at this time.
[2017-06-27 12:33] LABS: Alanine Aminotransferase 34 U/L (12-78); Alkaline Phosphatase 78 U/L (46-116); Amylase 61 U/L (25-125); Anion Gap 12.1 mEq/L (5-15); Bilirubin,Total 0.1 mg/dL (0.2-1.0); Blood Urea Nitrogen 13 mg/dL (7-18); Calcium 8.5 mg/dL (8.5-10.1); Carbon Dioxide 26 mmol/L (21.0-32.0); Chloride 104 mmol/L (98-107); Creatinine Clearance Estimated 105 mL/min (0-300); Estimated Glomerular Filt Rate 111 ml/min (>60); GFR (African American) 135 ML/MIN (>60); Globulin 3.9 gm/dl (1.3-3.2); Glucose 88 mg/dL (74-106); Sodium 138 mmol/L (136-145); Total Protein,Serum 7.9 gm/dL (6.4-8.2)
[2017-06-27 12:36] LABS: Aspartate Amino Transferase 19 U/L (15-37); Potassium 4.1 mmoL/L (3.5-5.1)
[2017-06-27 12:38] LABS: Lipase 173 u/L (73-393)
[2017-06-27 13:31] LABS: Microscopic, Urine URINE MICROSCOPIC (MICROSCOPIC)
[2017-06-27 13:32] LABS: Appearance,Urine SL CLOUDY (Clear); Bilirubin,Urine Negative (Negative); Blood, Urine Negative (Negative); Color,Urine YELLOW (Yellow); Glucose,Urine (UA) Negative (Negative); Ketones,Urine Negative (Negative); Leukocyte Esterase,Urine Negative (Negative); Nitrate,Urine Negative (Negative); Protein,Urine Negative (Negative); Urobilinogen,Urine 0.2 EU/dl (0.2)
[2017-06-27 13:45] LABS: Bacteria,Urine Trace /lpf; Squamous Epithelial Cell,Urine Occasional #/hpf (0-5)
--- NOTE | 2017-06-27 15:02 | PC.PHONENOTE ---
ER contacted [facility], spoke with Dr. Storm in ED, accepted pt to ER in transfer.
--- NOTE | 2017-06-27 15:05 | PC.NURSE ---
REPORT CALLED TO [facility], RECEIVING [employer] AT ED FOR TRANSFER ACCEPTANCE.
[2017-06-27 15:47] VITALS: BP 126/84; PULSE 77; RESP 16; TEMP 36.8; O2SAT 100
== END 2017-06-27 15:51 | disposition short-term general hospital (02) ==
PROVIDERS: Emergency Provider Emergency Medicine; Family Provider Family Medicine
DX: K50.90 Crohn's disease, unspecified, without complications (principal); F11.90 Opioid use, unspecified, uncomplicated; F41.8 Other specified anxiety disorders; D64.9 Anemia, unspecified; Z88.8 Allergy status to other drugs, medicaments and biological substances; Z93.3 Colostomy status
CPT/HCPCS: 74177; 80053; 81001; 82150; 83605; 83690; 85025; 87040; 96365; 96374; 96375; 99284; J2405; Q9967

== ENCOUNTER 2018-10-09 14:54 | Emergency (ER) | payer MEDICAID, SELFPAY ==
[2018-10-09 15:05] VITALS: BP 140/99; PULSE 79; RESP 18; TEMP 36.8; O2SAT 97; BMI 20.9
--- NOTE | 2018-10-09 15:28 | HMH.EDABDPAI ---
ED Disposition Clinical Impression: Crohns disease, Gallbladder disease, Status post colostomy, Cholelithiasis Disposition: Home, Self-Care Condition on Discharge: Fair Instructions: DI for Acute Abdomen Additional Instructions: 1- please copy all Labs and CT scan to go. 2- to see Dr Shannon on Thursday10/12/18 at 1 PM in the [place] clinic. 3- return if worse for admission. 4- lortab 5/325 mg p q 6 prn pain. Prescriptions: Hydrocod/Acet 5/325 mg [[place] 5/325mg tablet] 1 tab PO Q8HP PRN #12 tab PRN Reason: Moderate To Severe Pain Referrals: Carlos Mercedes MD [Primary Care Provider] - Eliu Friedman MD [Staff Physician] - - Critical Care Critical Care Time: No Attestation: On 10/09/18, the high probability of a clinically significant, sudden or life threatening deterioration of the following system(s) required my full and direct attention, intervention and personal management. The time I documented below is in addition to time spent performing reported procedures but includes the following listed in this critical care notation. Medical Decision Making - Medical Records Medical records reviewed: Yes: I reviewed the patient's medical records. - Brooks Inquiry Pt receiving controlled substance: No Brooks was queried for this patient: No Vital Signs: 10/09/18 15:05 10/09/18 15:55 10/09/18 16:20 Temperature 98.3 F Temperature Source Oral Pulse Rate [Left Radial] 79 68 64 Respiratory Rate 18 Blood Pressure [Right Arm] 140/99 H 135/75 130/80 Blood Pressure Mean [Right Arm] 112 95 96 Blood Pressure Source [Right Arm] Automatic Cuff Blood Pressure Position [Right Arm] Sitting 02 Sat by Pulse Oximetry 97 100 Oxygen Delivery Method Room Air 10/09/18 16:26 Temperature Temperature Source Pulse Rate [Left Radial] 69 Respiratory Rate Blood Pressure [Right Arm] 134/85 Blood Pressure Mean [Right Arm] 101 Blood Pressure Source [Right Arm] Blood Pressure Position [Right Arm] 02 Sat by Pulse Oximetry 94 L Oxygen Delivery Method - Lab Data Lab Results 10/09/18 15:37: WBC 5.3, RBC 4.54 L, Hgb 12.6 L, Hct 41.2 L, MCV 90.8, MCH 27.8, MCHC 30.7 L, RDW 13.4, Plt Count 247, MPV 7.2 L, Neut % (Auto) 63.2, Lymph % (Auto) 29.3, [place] % (Auto) 5.6, Eos % (Auto) 1.4, Baso % (Auto) 0.5, Neut # (Auto) 3.4, Lymph # (Auto) 1.6, [place] # (Auto) 0.3, Eos # (Auto) 0.1, Baso # (Auto) 0.0 10/09/18 15:37: Sodium 142, Potassium 4.8, Chloride 107, Carbon Dioxide 28, Anion Gap 11.8, BUN 13, Creatinine 0.92, Estimated Creat Clear 94, Estimated GFR 94, Est GFR ( Amer) 114, Glucose 96, Calcium 8.3 L, Total Bilirubin 0.3, AST 19, ALT 36, Alkaline Phosphatase 66, Total Protein 7.0, Albumin 3.9, Globulin 3.1, Albumin/Globulin Ratio 1.3, Amylase 44 10/09/18 15:37: Lipase 57 L Result diagrams: 10/09/18 15:37 10/09/18 15:37 Orders (Tests/Meds): ED MEDICATIONS Discontinued Medications Generic Name Dose Route Start Last Admin Trade Name Freq PRN Reason Stop Dose Admin Diatrizoate Meglum/Diatrizoate Sod 30 ml 10/09/18 15:40 10/09/18 15:55 Gastrografin 66%-10% 30ml PO 10/09/18 15:41 30 ml ONCE ONE Administration Famotidine 20 mg 10/09/18 15:28 10/09/18 15:54 Pepcid 20mg/2ml Vial IV 10/09/18 15:29 20 mg ONCE ONE Administration Sodium Chloride 1,000 mls @ 999 mls/hr 10/09/18 15:30 10/09/18 15:54 Sod Chlor 0.9% 1000ml Bag IV 10/09/18 16:30 999 mls/hr .Q1H1M DAVID Administration Ioversol 75 ml 10/09/18 16:18 10/09/18 16:20 Rad-Optiray 350 100ml Vial IV 10/09/18 16:19 75 ml ONCE ONE Administration Protocol Morphine Sulfate 2 mg 10/09/18 15:28 10/09/18 15:54 Morphine 2mg/Ml Syringe IV 10/09/18 15:29 2 mg ONCE ONE Administration Morphine Sulfate 2 mg 10/09/18 17:37 10/09/18 17:42 Morphine 2mg/Ml Syringe IV 10/09/18 17:38 2 mg ONCE ONE Administration Ondansetron HCl 4 mg 10/09/18 15:28 10/09/18 15:54 Zofran 4mg/2ml V
--- NOTE | 2018-10-09 15:29 | CT_ITS ---
CT abdomen pelvis w con CLINICAL INDICATION: Right upper quadrant pain, diarrhea, history of Crohn's disease and gallstones. ITS.REASON: po and IVc no wait, hx of GB stones ORDERING PHYSICIAN: Kevin Mcgarry MD PATIENT AGE: 33 years COMPARISON: 09/26/2017 TECHNIQUE: Axial images obtained with sagittal and coronal reformats. All CT scans at the facility use one or more dose reduction, viz: automated exposure control, ma/kV adjustment per patient size (including targeted exams where dose is matched to indication, i.e. head), or iterative reconstruction technique. PROCEDURE: Oral Contrast: Gastroview IV Contrast: 75 mL's Optiray 350. FINDINGS: The gallbladder is distended. There is one stone noted toward the neck of the gallbladder measuring approximately 3 to 4 mm. No intrahepatic ductal dilatation. Common bile duct is normal in caliber. The spleen, adrenal glands, and pancreas are unremarkable. No renal or ureteral calculi. Oral contrast was given but only is noted in the stomach and proximal small bowel. The distal small bowel are not opacified. There is a right lower quadrant ileostomy. There has been prior colectomy. No intestinal structure free air. No small bowel inflammatory changes are identified. Postsurgical changes are present in the pelvis with soft tissue thickening in the rectal region with heterogeneous density in the inferior rectal area as previously noted somewhat less apparent. Scattered small lymph nodes are present in the pelvis No acute bony findings. IMPRESSION: 1. Distended gallbladder with cholelithiasis. 2. Prior colectomy with right lower quadrant ileostomy and postsurgical changes in the rectal bed as previously described
--- NOTE | 2018-10-09 15:30 | PC.NURSE ---
at bedside with md as he talks to and examines patient
--- NOTE | 2018-10-09 15:33 | ED_ITS ---
ED Disposition Clinical Impression: Crohns disease, Gallbladder disease, Status post colostomy, Cholelithiasis Disposition: Home, Self-Care Condition on Discharge: Fair Instructions: DI for Acute Abdomen Additional Instructions: 1- please copy all Labs and CT scan to go. 2- to see Dr Shannon on Thursday10/12/18 at 1 PM in the [place] clinic. 3- return if worse for admission. 4- lortab 5/325 mg p q 6 prn pain. Prescriptions: Hydrocod/Acet 5/325 mg [[place] 5/325mg tablet] 1 tab PO Q8HP PRN #12 tab PRN Reason: Moderate To Severe Pain Referrals: Carlos Mercedes MD [Primary Care Provider] - Eliu Friedman MD [Staff Physician] - - Critical Care Critical Care Time: No Attestation: On 10/09/18, the high probability of a clinically significant, sudden or life threatening deterioration of the following system(s) required my full and direct attention, intervention and personal management. The time I documented below is in addition to time spent performing reported procedures but includes the following listed in this critical care notation. Medical Decision Making - Medical Records Medical records reviewed: Yes: I reviewed the patient's medical records. - Brooks Inquiry Pt receiving controlled substance: No Brooks was queried for this patient: No Vital Signs: 10/09/18 15:05 10/09/18 15:55 10/09/18 16:20 Temperature 98.3 F Temperature Source Oral Pulse Rate [Left Radial] 79 68 64 Respiratory Rate 18 Blood Pressure [Right Arm] 140/99 H 135/75 130/80 Blood Pressure Mean [Right Arm] 112 95 96 Blood Pressure Source [Right Arm] Automatic Cuff Blood Pressure Position [Right Arm] Sitting 02 Sat by Pulse Oximetry 97 100 Oxygen Delivery Method Room Air 10/09/18 16:26 Temperature Temperature Source Pulse Rate [Left Radial] 69 Respiratory Rate Blood Pressure [Right Arm] 134/85 Blood Pressure Mean [Right Arm] 101 Blood Pressure Source [Right Arm] Blood Pressure Position [Right Arm] 02 Sat by Pulse Oximetry 94 L Oxygen Delivery Method - Lab Data Lab Results 10/09/18 15:37: WBC 5.3, RBC 4.54 L, Hgb 12.6 L, Hct 41.2 L, MCV 90.8, MCH 27.8, MCHC 30.7 L, RDW 13.4, Plt Count 247, MPV 7.2 L, Neut % (Auto) 63.2, Lymph % (Auto) 29.3, [place] % (Auto) 5.6, Eos % (Auto) 1.4, Baso % (Auto) 0.5, Neut # (Auto) 3.4, Lymph # (Auto) 1.6, [place] # (Auto) 0.3, Eos # (Auto) 0.1, Baso # (Auto) 0.0 10/09/18 15:37: Sodium 142, Potassium 4.8, Chloride 107, Carbon Dioxide 28, Anion Gap 11.8, BUN 13, Creatinine 0.92, Estimated Creat Clear 94, Estimated GFR 94, Est GFR ( Amer) 114, Glucose 96, Calcium 8.3 L, Total Bilirubin 0.3, AST 19, ALT 36, Alkaline Phosphatase 66, Total Protein 7.0, Albumin 3.9, Globulin 3.1, Albumin/Globulin Ratio 1.3, Amylase 44 10/09/18 15:37: Lipase 57 L Result diagrams: 10/09/18 15:37 10/09/18 15:37 Orders (Tests/Meds): ED MEDICATIONS Discontinued Medications Generic Name Dose Route Start Last Admin Trade Name Freq PRN Reason Stop Dose Admin Diatrizoate Meglum/Diatrizoate Sod 30 ml 10/09/18 15:40 10/09/18 15:55 Gastrografin 66%-10% 30ml PO 10/09/18 15:41 30 ml
[2018-10-09 15:48] LABS: Basophils % 0.5 % (0.1-2.0); Eosinophils # 0.1 K/mm3 (0.0-0.4); Eosinophils % 1.4 % (0.1-12.0); Hematocrit 41.2 % (42.0-52.0); Hemoglobin 12.6 g/dL (14.1-18.0); Lymphocytes # 1.6 K/mm3 (0.7-4.5); Lymphocytes % 29.3 % (10-50); Mean Corpuscular HGB Conc 30.7 g/dL (31.8-35.4); Mean Corpuscular Hemoglobin 27.8 pg (27.0-31.2); Mean Corpuscular Volume 90.8 fl (80-94); Mean Platelet Volume 7.2 fl (7.4-10.4); Monocytes # 0.3 K/mm3 (0.1-1.0); Monocytes % 5.6 % (1.7-9.3); Neutrophils # 3.4 K/mm3 (1.8-7.8); Neutrophils % 63.2 % (37.0-80.0); Platelet Count 247 K/mm3 (142-424); Red Blood Count 4.54 M/mm3 (4.60-6.20); Red Cell Distribution Width 13.4 % (11.5-17.5); White Blood Count 5.3 K/mm3 (4.8-10.8)
--- NOTE | 2018-10-09 15:49 | PC.NURSE ---
called and notified rad of contrast completion
[2018-10-09 15:55] VITALS: BP 135/75; PULSE 68
[2018-10-09 15:59] LABS: Lipase 57 u/L (73-393)
[2018-10-09 16:00] LABS: Alanine Aminotransferase 36 U/L (12-78); Albumin Level 3.9 gm/dL (3.4-5.0); Albumin/Globulin Ratio 1.3 (1.1-1.8); Alkaline Phosphatase 66 U/L (46-116); Amylase 44 U/L (25-115); Anion Gap 11.8 mEq/L (5-15); Aspartate Amino Transferase 19 U/L (15-37); Bilirubin,Total 0.3 mg/dL (0.2-1.0); Blood Urea Nitrogen 13 mg/dL (7-18); Calcium 8.3 mg/dL (8.5-10.1); Carbon Dioxide 28 mmol/L (21.0-32.0); Chloride 107 mmol/L (98-107); Creatinine Clearance Estimated 94 mL/min (50-200); Creatinine,Serum 0.92 mg/dL (0.70-1.30); Estimated Glomerular Filt Rate 94 ml/min (>60); GFR (African American) 114 ML/MIN (>60); Globulin 3.1 gm/dl (1.3-3.2); Glucose 96 mg/dL (74-106); Potassium 4.8 mmoL/L (3.5-5.1); Sodium 142 mmol/L (136-145)
--- NOTE | 2018-10-09 16:04 | PC.NURSE ---
pt gone to ct
--- NOTE | 2018-10-09 16:15 | PC.NURSE ---
back from radiology
[2018-10-09 16:20] VITALS: BP 130/80; PULSE 64; O2SAT 100
[2018-10-09 16:26] VITALS: BP 134/85; PULSE 69; O2SAT 94
[2018-10-09 17:55] VITALS: BP 132/58; PULSE 71; RESP 16; TEMP 36.8; O2SAT 100
== END 2018-10-09 17:56 | disposition home or self-care (01) ==
PROVIDERS: Emergency Provider Emergency Medicine; PCP Family Medicine
DX: K82.9 Disease of gallbladder, unspecified (principal); K50.90 Crohn's disease, unspecified, without complications; Z93.3 Colostomy status; K21.9 Gastro-esophageal reflux disease without esophagitis; F41.8 Other specified anxiety disorders
CPT/HCPCS: 74177; 80053; 82150; 83690; 85025; 96365; 96375; 96376; 99283; J2405; Q9967

== ENCOUNTER → 2019-06-14 08:15 | Outpatient (CLI) | payer SELFPAY ==
--- NOTE | 2019-06-14 08:16 | US_ITS ---
PROCEDURE: US GALLBLADDER CLINICAL INDICATION: gallstones, distended gallbladder COMPARISON: No exams were available for comparison FINDINGS: Pancreas: Unremarkable Liver: Unremarkable. There is appropriate direction of blood flow within a non dilated portal vein. Right kidney: Unremarkable appearing. No hydronephrosis. Gallbladder: There are gallstones. On some images there appears to be gallbladder wall thickening up to 4.6 millimeters. The findings would raise the question of acute versus chronic cholecystitis. There is no pericholecystic fluid or biliary ductal dilatation common bile duct 3 millimeters. IMPRESSION: Cholelithiasis with gallbladder wall thickening. Cholecystitis should be considered. Radionuclide hepatobiliary imaging may be useful to further evaluate the cystic duct if felt to be clinically indicated. Dictated by: Winston Vasquez 06/14/2019 09:32 Electronically signed by Winston Vasquez in [facility] 06/14/2019 09:32
== END ==
PROVIDERS: PCP Family Medicine; Visit Provider Surgery
DX: K82.9 Disease of gallbladder, unspecified (principal)
CPT/HCPCS: 76705

== ENCOUNTER 2020-07-07 07:28 | Emergency (ER) | payer OTHER, SELFPAY ==
[2020-07-07] VITALS (7 sets, daily range): BP systolic 112–136; BP diastolic 74–94; PULSE 65–78; RESP 16–18; TEMP 37; O2SAT 96–99; BMI 24.2
--- NOTE | 2020-07-07 07:40 | CT_ITS ---
PROCEDURE: CT ABDOMEN PELVIS W CON CLINICAL INDICATION: ABD PAIN Right upper quadrant pain with nausea COMPARISON: CT ABDPELW CT abdomen pelvis w con from 10/09/[address] ABDOMEN PELVIS W CON from 06/03/2019 TECHNIQUE: IV Contrast: 75ML Isovue 370 Oral Contrast None Axial images obtained with sagittal and coronal reformats. All CT scans at the facility use one or more dose reduction, viz: automated exposure control, ma/kV adjustment per patient size (including targeted exams where dose is matched to indication, i.e. head), or iterative reconstruction technique. FINDINGS: LOWER THORAX: No acute finding ABDOMEN & PELVIS: Stable 5 mm hypodensity is present in the right hepatic lobe laterally. The gallbladder is distended. There is a 17 mm stone in the neck of the gallbladder. The spleen and adrenal glands are unremarkable. Unremarkable appearing pancreas. A 3 mm stone is present in the lower pole of the right kidney. No ureteral calculi or hydronephrosis. There has been a prior colectomy with a right lower quadrant ileostomy. No intestinal obstruction or free air. Postsurgical changes are present with increased density in the rectal space. Soft tissue density is present in the presacral region and rectal space area not significantly changed and may be related to postsurgical fibrotic change/scarring. IMPRESSION: Overall no significant change in the distended gallbladder and a stone in the region of the gallbladder neck. Prior colectomy with right lower quadrant ileostomy and postsurgical changes in the pelvis Nonobstructing right nephrolithiasis Dictated by: Shay Ronquillo MD 07/07/2020 09:08 Shay Ronquillo MD in [facility] 07/07/2020 09:08
[2020-07-07 07:57] LABS: Basophils % 0.5 % (0.1-2.0); Eosinophils # 0.1 K/mm3 (0.0-0.4); Eosinophils % 1.7 % (0.1-12.0); Hematocrit 47.6 % (42.0-52.0); Hemoglobin 15.3 g/dL (14.1-18.0); Lymphocytes # 2.2 K/mm3 (0.7-4.5); Lymphocytes % 32.4 % (10-50); Mean Corpuscular HGB Conc 32.1 g/dL (31.8-35.4); Mean Corpuscular Hemoglobin 30.4 pg (27.0-31.2); Mean Corpuscular Volume 94.6 fl (80-94); Mean Platelet Volume 7.7 fl (7.4-10.4); Monocytes # 0.3 K/mm3 (0.1-1.0); Monocytes % 4.6 % (1.7-9.3); Neutrophils % 60.8 % (37.0-80.0); Platelet Count 233 K/mm3 (142-424); Red Blood Count 5.03 M/mm3 (4.60-6.20); Red Cell Distribution Width 12.8 % (11.5-17.5); White Blood Count 6.7 K/mm3 (4.8-10.8)
--- NOTE | 2020-07-07 08:01 | HMH.EDABDPAI ---
ED Disposition Clinical Impression: Cholelithiases Qualifiers: Cholelithiasis location: gallbladder Cholecystitis presence: without cholecystitis Biliary obstruction: without biliary obstruction Qualified Code(s): K80.20 - Calculus of gallbladder without cholecystitis without obstruction Disposition: Home, Self-Care Condition on Discharge: Good Instructions: DI for Acute Abdominal Pain Prescriptions: Dicyclomine HCl [Bentyl 10mg capsule] 10 mg PO Q8HP PRN #30 cap PRN Reason: abdominal pain Transmission Status: Pending to [facility] Ketorolac Tromethamine [Toradol 10mg tablet] 10 mg PO Q6H 5 Days #20 tab Transmission Status: Pending to [facility] Referrals: Carlos Mercedes MD [Primary Care Provider] - - Critical Care Critical Care Time: No Attestation: On 07/07/20, the high probability of a clinically significant, sudden or life threatening deterioration of the following system(s) required my full and direct attention, intervention and personal management. The time I documented below is in addition to time spent performing reported procedures but includes the following listed in this critical care notation. Medical Decision Making - Medical Records Medical records reviewed: Yes: I reviewed the patient's medical records. - Brooks Inquiry Pt receiving controlled substance: No Vital Signs: 07/07/20 07:29 07/07/20 07:46 07/07/20 08:04 Temperature 98.6 F Temperature Source Oral Pulse Rate [Radial] 78 78 74 Respiratory Rate 16 18 18 Blood Pressure [Right Arm] 132/92 H 132/92 H 133/94 H Blood Pressure Mean [Right Arm] 105 105 107 Blood Pressure Source [Right Arm] Automatic Cuff Automatic Cuff Blood Pressure Position [Right Arm] Sitting Sitting Sitting 02 Sat by Pulse Oximetry 98 96 98 Oxygen Delivery Method Room Air Room Air Room Air 07/07/20 08:47 Temperature Temperature Source Pulse Rate [Radial] 68 Respiratory Rate 18 Blood Pressure [Right Arm] 112/74 Blood Pressure Mean [Right Arm] 86 Blood Pressure Source [Right Arm] Automatic Cuff Blood Pressure Position [Right Arm] Sitting 02 Sat by Pulse Oximetry 99 Oxygen Delivery Method Room Air - Lab Data Lab Results 07/07/20 07:40: WBC 6.7, RBC 5.03, Hgb 15.3, Hct 47.6, MCV 94.6 H, MCH 30.4, MCHC 32.1, RDW 12.8, Plt Count 233, MPV 7.7, Neut % (Auto) 60.8, Lymph % (Auto) 32.4, [place] % (Auto) 4.6, Eos % (Auto) 1.7, Baso % (Auto) 0.5, Neut # (Auto) 4.0, Lymph # (Auto) 2.2, [place] # (Auto) 0.3, Eos # (Auto) 0.1, Baso # (Auto) 0.0 07/07/20 07:40: Sodium 140, Potassium 4.3, Chloride 106, Carbon Dioxide 27, Anion Gap 11.3, BUN 16, Creatinine 1.00, Estimated Creat Clear 98, Estimated GFR 85, Est GFR ( Amer) 102, Glucose 104 H, Calcium 9.0, Total Bilirubin 0.3, AST 35, ALT 32, Alkaline Phosphatase 65, Total Protein 7.8, Albumin 4.6, Globulin 3.2, Albumin/Globulin Ratio 1.4, Amylase 61, Lipase 47 Result diagrams: 07/07/20 07:40 07/07/20 07:40 Orders (Tests/Meds): ED MEDICATIONS Generic Name Dose Route Start Last Admin Trade Name Freq PRN Reason Stop Dose Admin Sodium Chloride 10 ml 07/07/20 08:00 Sodium Chloride 0.9% 10ml Vial IV 08/06/20 07:59 NEEDED PRN dilute protonix Discontinued Medications Generic Name Dose Route Start Last Admin Trade Name Freq PRN Reason Stop Dose Admin Dicyclomine HCl 20 mg 07/07/20 08:00 07/07/20 08:11 Dicyclomine 20 Mg/2ml Vial IM 07/07/20 08:01 20 mg ONCE ONE Administration Iopamidol 75 ml 07/07/20 08:37 07/07/20 08:38 Iopamidol-370 (76%);100ml Bottle IV 07/07/20 08:38 75 ml ONCE ONE Administration Ketorolac Tromethamine 30 mg 07/07/20 07:47 07/07/20 08:03 Ketorolac 30mg/Ml Vial IV 07/07/20 07:48 30 mg ONCE ONE Administration Ketorolac Tromethamine 30 mg 07/07/20 08:00 07/07/20 08:06 Ketorolac 30mg/Ml Vial IV 07/07/20 08:01 Not Given ONCE ONE Ondansetron HCl 4 mg 07/07/20 07:47 07/07/20 08:05 Ondansetron 4mg/2ml Vial I
--- NOTE | 2020-07-07 08:11 | PC.NURSE ---
checked on pt stated he was still in a lot of pain, advised nursing staff
[2020-07-07 08:15] LABS: Alanine Aminotransferase 32 U/L (12-78); Albumin Level 4.6 g/dl (3.5-5.0); Albumin/Globulin Ratio 1.4 (1.1-1.8); Alkaline Phosphatase 65 U/L (38-126); Amylase 61 U/L (30-110); Anion Gap 11.3 mEq/L (5-15); Aspartate Amino Transferase 35 U/L (17-59); Bilirubin,Total 0.3 mg/dl (0.2-1.3); Blood Urea Nitrogen 16 mg/dl (9-20); Carbon Dioxide 27 mmol/L (22.0-30.0); Chloride 106 mmol/L (98-107); Creatinine Clearance Estimated 98 mL/min (50-200); Estimated Glomerular Filt Rate 85 ml/min (>60); GFR (African American) 102 ML/MIN (>60); Globulin 3.2 g/dL (1.3-3.2); Glucose 104 mg/dl (74-100); Lipase 47 U/L (23-300); Potassium 4.3 mmoL/L (3.5-5.1); Sodium 140 mmol/L (136-145); Total Protein,Serum 7.8 g/dl (6.3-8.2)
--- NOTE | 2020-07-07 08:26 | PC.NURSE ---
PT GONE TO CT
--- NOTE | 2020-07-07 09:31 | PC.NURSE ---
checked on pt and he stated that he was still in a lot of pain, advised nursing staff
== END 2020-07-07 10:02 | disposition home or self-care (01) ==
PROVIDERS: Emergency Provider Emergency Medicine; PCP Family Medicine
DX: K80.20 Calculus of gallbladder without cholecystitis without obstruction (principal); F41.8 Other specified anxiety disorders; D64.9 Anemia, unspecified; R03.0 Elevated blood-pressure reading, without diagnosis of hypertension; Z88.8 Allergy status to other drugs, medicaments and biological substances; Z79.899 Other long term (current) drug therapy
CPT/HCPCS: 74177; 80053; 82150; 83690; 85025; 96372; 96374; 96375; 99283; J2405; Q9967

== ENCOUNTER 2021-03-05 17:20 | Emergency (ER) | payer OTHER, SELFPAY ==
[2021-03-05 18:23] VITALS: BP 126/99; PULSE 97; RESP 16; TEMP 37; O2SAT 94; BMI 23.2
--- NOTE | 2021-03-05 18:29 | HMH.EDGENADL ---
ED Disposition Condition on Discharge: Good - Critical Care Critical Care Time: No <Rodrigo Agosto - Last Filed: 03/05/21 20:10> <Mayo Conde - Last Filed: 03/05/21 21:54> Clinical Impression: Abdominal pain, periumbilical Cholelithiasis Qualifiers: Cholelithiasis location: gallbladder Cholecystitis presence: without cholecystitis Biliary obstruction: without biliary obstruction Qualified Code(s): K80.20 - Calculus of gallbladder without cholecystitis without obstruction Inflammatory bowel disease (Crohn's disease) Qualifiers: Gastrointestinal tract location: unspecified location Digestive disease complication type: unspecified complication Qualified Code(s): K50.919 - Crohn's disease, unspecified, with unspecified complications Disposition: Left Against Medical Advice Referrals: Carlos Mercedes MD [Primary Care Provider] - Attestation: On 03/05/21, the high probability of a clinically significant, sudden or life threatening deterioration of the following system(s) required my full and direct attention, intervention and personal management. The time I documented below is in addition to time spent performing reported procedures but includes the following listed in this critical care notation. Medical Decision Making - Brooks Inquiry Pt receiving controlled substance: Yes Brooks was queried for this patient: Yes Risks and benefits of using a controlled substance: were not discussed with pt by me - Lab Data Result diagrams: 03/05/21 18:45 03/05/21 18:45 <Rodrigo Agosto - Last Filed: 03/05/21 20:10> - Lab Data Lab results reviewed: Yes: I reviewed the patient's lab results. Result diagrams: 03/05/21 18:45 03/05/21 18:45 - CT Data CT Scan: Abdomen, Pelvis Time Received: 21:[address] Reviewed: Yes: I have viewed the radiologist's interpretation Preliminary Findings: Abnormal (see report) - Physician Consults Physician Consulted: masha Reason -: Pt condition <Mayo Conde - Last Filed: 03/05/21 21:54> Vital Signs: 03/05/21 18:23 03/05/21 19:52 Temperature 98.6 F 98.6 F Temperature Source Oral Oral Pulse Rate 88 Pulse Rate [Right Radial] 97 H Respiratory Rate 16 16 Blood Pressure 127/98 H Blood Pressure [Right Arm] 126/99 H Blood Pressure Mean [Right Arm] 108 Blood Pressure Source [Right Arm] Automatic Cuff Blood Pressure Position [Right Arm] Sitting 02 Sat by Pulse Oximetry 94 L Oxygen Delivery Method Room Air Room Air - Lab Data Lab Results 03/05/21 18:45: Urine Color Yellow, Urine Appearance Clear, Urine pH 6.0, Ur Specific Rudolph 1.020, Urine Protein Negative, Urine Glucose (UA) Negative, Urine Ketones Negative, Urine Blood Negative, Urine Nitrate Negative, Urine Bilirubin Negative, Urine Urobilinogen 0.2, Ur Leukocyte Esterase Negative, Urine RBC None, Urine WBC Occasional, Ur Squamous Epith Cells None, Urine Bacteria None 03/05/21 18:45: WBC 5.4, RBC 4.98, Hgb 15.5, Hct 48.2, MCV 96.7 H, MCH 31.2, MCHC 32.3, RDW 12.8, Plt Count 279, MPV 8.3, Neut % (Auto) 59.2, Lymph % (Auto) 33.2, [place] % (Auto) 5.9, Eos % (Auto) 0.8, Baso % (Auto) 0.9, Neut # (Auto) 3.2, Lymph # (Auto) 1.8, [place] # (Auto) 0.3, Eos # (Auto) 0.0, Baso # (Auto) 0.1 03/05/21 18:45: Sodium 141, Potassium 3.9, Chloride 105, Carbon Dioxide 26, Anion Gap 13.9, BUN 8 L, Creatinine 0.80, Estimated Creat Clear 118, Estimated GFR 109, Est GFR ( Amer) 132, Glucose 95, Calcium 9.6, Total Bilirubin 0.7, AST 32, ALT 22, Alkaline Phosphatase 62, C-Reactive Protein 7.2 H, Total Protein 7.5, Albumin 4.6, Globulin 2.9, Albumin/Globulin Ratio 1.6, Amylase 52, Lipase 15 L 03/05/21 18:45: ESR 8 Orders (Tests/Meds): ED MEDICATIONS Discontinued Medications Generic Name Dose Route Start Last Admin Trade Name Freq PRN Reason Stop Dose Admin Diatrizoate Meglum/Diatrizoate Sod 30 ml 03/05/21 19:12 03/05/21 19:16 Diatrizoate Elvi 66% & Diatrizoate Na 10% 30ml Udc PO 03/05/21 19:13 30 ml ONCE O
--- NOTE | 2021-03-05 18:33 | CT_ITS ---
PROCEDURE INFORMATION: Exam: CT Abdomen And Pelvis With Contrast Exam date and time: 03/05/2021 6:33 PM Age: 35 years old Clinical indication: Abdominal pain; Flank; Right; Prior surgery; Surgery date: 6+ months; Surgery type: Colon resection 2008, 2012 for crohns. ; Additional info: Abd pain TECHNIQUE: Imaging protocol: Computed tomography of the abdomen and pelvis with contrast. Radiation optimization: All CT scans at this facility use at least one of these dose optimization techniques: automated exposure control; mA and/or kV adjustment per patient size (includes targeted exams where dose is matched to clinical indication); or iterative reconstruction. Contrast material: ISOVUE; Contrast volume: 70 ml; Contrast route: IV; COMPARISON: CT ABDOMEN PELVIS W CON 07/07/2020 8:27 AM FINDINGS: Mediastinal space: Contrast within the lower esophagus. Liver: Hypoattenuating 5 mm lesion within the right liver which is stable. Gallbladder and bile ducts: Gallbladder is decompressed with intraluminal stones. Pancreas: Normal enhancement. No ductal dilation. Spleen: No splenomegaly. Adrenal glands: No mass. Kidneys and ureters: Punctate nonobstructing renal calculi without hydronephrosis. Stomach and bowel: Thickening of the pylorus with a single wall measuring 18 mm in thickness. Status post colectomy. No bowel obstruction. Appendix: No evidence of appendicitis. Intraperitoneal space: Stable stranding within the pelvis. No free air. No significant fluid collection. Vasculature: No abdominal aortic aneurysm. Lymph nodes: No enlarged lymph nodes. Urinary bladder: No acute abnormality. Reproductive: No acute abnormality. Bones/joints: No acute fracture. Soft tissues: 19 x 30 mm fat containing right lower quadrant parastomal hernia. IMPRESSION: 1. Gallbladder is decompressed with intraluminal stones. 2. Contrast within the lower esophagus suggesting gastroesophageal reflux. 3. Thickening of the pylorus which may be infectious/inflammatory or malignant. 4. Punctate nonobstructing renal calculi without hydronephrosis.
[2021-03-05 19:09] LABS: Microscopic, Urine URINE MICROSCOPIC (MICROSCOPIC)
[2021-03-05 19:15] LABS: Appearance,Urine CLEAR (Clear); Bilirubin,Urine Negative (Negative); Blood, Urine Negative (Negative); Color,Urine YELLOW (Yellow); Glucose,Urine (UA) Negative (Negative); Ketones,Urine Negative (Negative); Leukocyte Esterase,Urine Negative (Negative); Nitrate,Urine Negative (Negative); Protein,Urine Negative (Negative); Urobilinogen,Urine 0.2 EU/dl (0.2)
[2021-03-05 19:16] LABS: Basophils # 0.1 K/mm3 (0-0.2); Basophils % 0.9 % (0.1-2.0); Eosinophils % 0.8 % (0.1-12.0); Hematocrit 48.2 % (42.0-52.0); Hemoglobin 15.5 g/dL (14.1-18.0); Lymphocytes # 1.8 K/mm3 (0.7-4.5); Lymphocytes % 33.2 % (10-50); Mean Corpuscular HGB Conc 32.3 g/dL (31.8-35.4); Mean Corpuscular Hemoglobin 31.2 pg (27.0-31.2); Mean Corpuscular Volume 96.7 fl (80-94); Mean Platelet Volume 8.3 fl (7.4-10.4); Monocytes # 0.3 K/mm3 (0.1-1.0); Monocytes % 5.9 % (1.7-9.3); Neutrophils # 3.2 K/mm3 (1.8-7.8); Neutrophils % 59.2 % (37.0-80.0); Platelet Count 279 K/mm3 (142-424); Red Blood Count 4.98 M/mm3 (4.60-6.20); Red Cell Distribution Width 12.8 % (11.5-17.5); White Blood Count 5.4 K/mm3 (4.8-10.8)
[2021-03-05 19:18] LABS: Alanine Aminotransferase 22 U/L (12-78); Albumin Level 4.6 g/dl (3.5-5.0); Albumin/Globulin Ratio 1.6 (1.1-1.8); Alkaline Phosphatase 62 U/L (38-126); Amylase 52 U/L (30-110); Anion Gap 13.9 mEq/L (5-15); Aspartate Amino Transferase 32 U/L (17-59); Bilirubin,Total 0.7 mg/dl (0.2-1.3); Blood Urea Nitrogen 8 mg/dl (9-20); Calcium 9.6 mg/dl (8.4-10.2); Carbon Dioxide 26 mmol/L (22.0-30.0); Chloride 105 mmol/L (98-107); Creatinine Clearance Estimated 118 mL/min (50-200); Estimated Glomerular Filt Rate 109 ml/min (>60); GFR (African American) 132 ML/MIN (>60); Globulin 2.9 g/dL (1.3-3.2); Glucose 95 mg/dl (74-100); Lipase 15 U/L (23-300); Potassium 3.9 mmoL/L (3.5-5.1); Sodium 141 mmol/L (136-145); Total Protein,Serum 7.5 g/dl (6.3-8.2)
--- NOTE | 2021-03-05 19:20 | PC.NURSE ---
oral contrast finished at 191
[2021-03-05 19:24] LABS: C-Reactive Protein 7.2 mg/L (0-4)
[2021-03-05 19:35] LABS: WBC,Urine Occasional #/hpf (0-3)
[2021-03-05 19:44] LABS: Erythrocyte Sedimentation Rate 8 mm/hr (0-15)
[2021-03-05 19:52] VITALS: BP 127/98; PULSE 88; RESP 16; TEMP 37; O2SAT 97
--- NOTE | 2021-03-05 22:45 | PC.NURSE ---
@2119 Pt educated to stay in room as he has walked out to nurse's station and walking the hallway on several occasions. @2134 Dr. Conde s/w Dr. Uriarte regarding CT results. @2139 Dr. Conde went to s/w pt and discovered pt had eloped. No IV discovered in room or in trash. @2140 pt called and was yelling at the staff over the phone of his wait time. RNs attempted to educate pt however he refused to listen to the information and talked over staff. Pt reported he pulled out his own IV out when he got home. Pt was told to follow up with Dr. Mercedes and his GI specialist. @2149 Notified Dispatch that pt had eloped with IV cath. @2229 Officer Kevin reported back to [facility] that pt no longer had IV in place. loading supervisor notified of the above events.
== END 2021-03-05 19:55 | disposition left against medical advice (07) ==
PROVIDERS: Emergency Provider Emergency Medicine; PCP Family Medicine
DX: R10.33 Periumbilical pain (principal); K80.20 Calculus of gallbladder without cholecystitis without obstruction; K50.919 Crohn's disease, unspecified, with unspecified complications; F41.8 Other specified anxiety disorders
CPT/HCPCS: 74177; 80053; 81001; 82150; 83690; 85025; 85651; 86140; 96375; 99283; J2405; Q9967

== ENCOUNTER 2021-03-06 03:04 | Emergency (ER) | payer OTHER, SELFPAY ==
[2021-03-06] VITALS (8 sets, daily range): BP systolic 92–108; BP diastolic 50–74; PULSE 98–118; RESP 17–20; TEMP 36.7; O2SAT 97–100; BMI 23.2
--- NOTE | 2021-03-06 03:24 | PC.NURSE ---
Per pt, he authorized to given updates to his mother. Gave mother update on poc and dx
--- NOTE | 2021-03-06 03:41 | HMH.EDNVD ---
ED Disposition Clinical Impression: UGIB (upper gastrointestinal bleed) Inflammatory bowel disease (Crohn's disease) Qualifiers: Gastrointestinal tract location: unspecified location Digestive disease complication type: unspecified complication Qualified Code(s): K50.919 - Crohn's disease, unspecified, with unspecified complications Cholelithiasis Qualifiers: Cholelithiasis location: gallbladder Cholecystitis presence: without cholecystitis Biliary obstruction: without biliary obstruction Qualified Code(s): K80.20 - Calculus of gallbladder without cholecystitis without obstruction Disposition: Xfer Short-Term Hosp Condition on Discharge: Serious Instructions: DI for Acute Abdominal Pain Referrals: Carlos Mercedes MD [Primary Care Provider] - - Critical Care Critical Care Time: No Attestation: On 03/06/21, the high probability of a clinically significant, sudden or life threatening deterioration of the following system(s) required my full and direct attention, intervention and personal management. The time I documented below is in addition to time spent performing reported procedures but includes the following listed in this critical care notation. Medical Decision Making - Medical Records Medical records reviewed: Yes: I reviewed the patient's medical records. - Brooks Inquiry Pt receiving controlled substance: No Vital Signs: 03/06/21 03:01 03/06/21 04:00 03/06/21 04:30 Temperature 98.1 F Temperature Source Oral Pulse Rate 104 H 100 H Pulse Rate [Right] 118 H Respiratory Rate 20 Blood Pressure 98/55 L 92/57 L Blood Pressure [Right Arm] 97/74 L Blood Pressure Mean 79 68 Blood Pressure Mean [Right Arm] 81 Blood Pressure Source [Right Arm] Automatic Cuff 02 Sat by Pulse Oximetry 99 98 98 Oxygen Delivery Method Room Air 03/06/21 04:58 Temperature Temperature Source Pulse Rate 111 H Pulse Rate [Right] Respiratory Rate Blood Pressure 108/67 L Blood Pressure [Right Arm] Blood Pressure Mean 80 Blood Pressure Mean [Right Arm] Blood Pressure Source [Right Arm] 02 Sat by Pulse Oximetry 97 Oxygen Delivery Method - Lab Data Lab results reviewed: Yes: I reviewed the patient's lab results. Lab Results 03/06/21 03:51: WBC 10.9 H D, RBC 3.28 L D, Hgb 10.3 L D, Hct 33.0 L, MCV 100.4 H, MCH 31.6 H, MCHC 31.5 L, RDW 12.8, Plt Count 280, MPV 8.0, Neut % (Auto) 72.0, Lymph % (Auto) 21.8, [place] % (Auto) 5.0, Eos % (Auto) 0.6, Baso % (Auto) 0.5, Neut # (Auto) 7.9 H, Lymph # (Auto) 2.4, [place] # (Auto) 0.6, Eos # (Auto) 0.1, Baso # (Auto) 0.1 03/06/21 03:51: Sodium 138, Potassium 4.1, Chloride 110 H, Carbon Dioxide 24, Anion Gap 8.1, BUN 17 D, Creatinine 1.00 D, Estimated Creat Clear 94, Estimated GFR 85, Est GFR ( Amer) 102 D, Glucose 129 H D, Calcium 7.6 L, Total Bilirubin 0.5, AST 21 D, ALT 17, Alkaline Phosphatase 33 L, C-Reactive Protein 4.7 H D, Total Protein 5.0 L D, Albumin 2.8 L D, Globulin 2.2, Albumin/Globulin Ratio 1.3, Amylase 34 D, Lipase 20 L 03/06/21 03:51: ESR 16 H 03/06/21 03:51: Procalcitonin 0.062 Result diagrams: 03/06/21 03:51 03/06/21 03:51 Orders (Tests/Meds): ED MEDICATIONS Generic Name Dose Route Start Last Admin Trade Name Freq PRN Reason Stop Dose Admin Sodium Chloride 1,000 mls @ 999 mls/hr 03/06/21 03:30 03/06/21 03:34 Sod Chlor 0.9% 1000ml Bag IV 03/06/21 04:30 999 mls/hr .Q1H1M DAVID Administration Sodium Chloride 1,000 mls @ 150 mls/hr 03/06/21 04:15 03/06/21 04:06 Sod Chlor 0.9% 1000ml Bag IV 04/05/21 04:14 150 mls/hr .Q6H40M DAVID Administration Sodium Chloride 8 ml 03/06/21 03:47 Sodium Chloride 0.9% 10ml Vial IV 04/05/21 03:46 NEEDED PRN dilute pepcid Discontinued Medications Generic Name Dose Route Start Last Admin Trade Name Freq PRN Reason Stop Dose Admin Famotidine 20 mg 03/06/21 03:47 03/06/21 03:53 Famotidine 20mg/2ml Vial IV 03/06/21 03:48 20 mg ONCE ONE Administrat
--- NOTE | 2021-03-06 03:43 | PC.NURSE ---
Pt refusing to keep bp cuff and o2 sat in place.
[2021-03-06 04:05] LABS: Basophils # 0.1 K/mm3 (0-0.2); Basophils % 0.5 % (0.1-2.0); Eosinophils # 0.1 K/mm3 (0.0-0.4); Eosinophils % 0.6 % (0.1-12.0); Lymphocytes # 2.4 K/mm3 (0.7-4.5); Lymphocytes % 21.8 % (10-50); Mean Corpuscular HGB Conc 31.5 g/dL (31.8-35.4); Mean Corpuscular Hemoglobin 31.6 pg (27.0-31.2); Mean Corpuscular Volume 100.4 fl (80-94); Monocytes # 0.6 K/mm3 (0.1-1.0); Neutrophils # 7.9 K/mm3 (1.8-7.8); Platelet Count 280 K/mm3 (142-424); Red Blood Count 3.28 M/mm3 (4.60-6.20); Red Cell Distribution Width 12.8 % (11.5-17.5); White Blood Count 10.9 K/mm3 (4.8-10.8)
[2021-03-06 04:10] LABS: Hemoglobin 10.3 g/dL (14.1-18.0)
[2021-03-06 04:11] LABS: Alanine Aminotransferase 17 U/L (12-78); Albumin Level 2.8 g/dl (3.5-5.0); Albumin/Globulin Ratio 1.3 (1.1-1.8); Alkaline Phosphatase 33 U/L (38-126); Amylase 34 U/L (30-110); Anion Gap 8.1 mEq/L (5-15); Aspartate Amino Transferase 21 U/L (17-59); Bilirubin,Total 0.5 mg/dl (0.2-1.3); Blood Urea Nitrogen 17 mg/dl (9-20); Calcium 7.6 mg/dl (8.4-10.2); Carbon Dioxide 24 mmol/L (22.0-30.0); Chloride 110 mmol/L (98-107); Creatinine Clearance Estimated 94 mL/min (50-200); Estimated Glomerular Filt Rate 85 ml/min (>60); GFR (African American) 102 ML/MIN (>60); Globulin 2.2 g/dL (1.3-3.2); Glucose 129 mg/dl (74-100); Lipase 20 U/L (23-300); Potassium 4.1 mmoL/L (3.5-5.1); Sodium 138 mmol/L (136-145)
[2021-03-06 04:16] LABS: C-Reactive Protein 4.7 mg/L (0-4)
[2021-03-06 04:30] LABS: Procalcitonin 0.062 ng/mL (0.0-2.0)
[2021-03-06 04:35] LABS: Erythrocyte Sedimentation Rate 16 mm/hr (0-15)
--- NOTE | 2021-03-06 04:40 | PC.NURSE ---
pt called out for nurse, pt had vomited a small amount of bright red appearance of blood. this RN collected sample for gastric occult card. He then stated he needed to empty his ileostomy bag. Upon emptying the bag, it was ~ 400ml of bright red blood. Stool occult card collected also.
--- NOTE | 2021-03-06 04:59 | PC.NURSE ---
jackeline on phone with MDs
--- NOTE | 2021-03-06 05:01 | PC.NURSE ---
Elton talking to Dr Higginbotham @ this time place pt on waiting list @ this time
--- NOTE | 2021-03-06 05:10 | PC.NURSE ---
Calling [facility] [address] transfer center to see if they can accept pt to [place] or close facilities with GI
[2021-03-06 05:19] LABS: Coronavirus 19, PCR Not Detected (NotDetected); Influenza A, PCR Not Detected (NotDetected); Influenza B, PCR Not Detected (NotDetected)
--- NOTE | 2021-03-06 05:24 | PC.NURSE ---
Dr. Conde s/w [facility]
--- NOTE | 2021-03-06 05:26 | PC.NURSE ---
Dr. Conde s/w Dr. Vladimir Mondragon with [facility]
--- NOTE | 2021-03-06 05:29 | PC.NURSE ---
Dr. Mondragon agrees to accept pt. Bed assignment is [facility] ICU bed1. call report to [phone].
[2021-03-06 05:30] LABS: Occult Blood,Gastric Fluid Positive (Negative); Occult Blood,Stool Positive (Negative)
--- NOTE | 2021-03-06 06:06 | PC.NURSE ---
10 min left on covid swab
--- NOTE | 2021-03-06 06:10 | PC.NURSE ---
Called report to Adrianna Mayorga RN @ [facility]
--- NOTE | 2021-03-06 06:16 | PC.NURSE ---
faxed facesheet to [facility]
== END 2021-03-06 06:35 | disposition short-term general hospital (02) ==
PROVIDERS: Emergency Provider Emergency Medicine; PCP Family Medicine
DX: K92.2 Gastrointestinal hemorrhage, unspecified (principal); K50.919 Crohn's disease, unspecified, with unspecified complications; K80.20 Calculus of gallbladder without cholecystitis without obstruction; F41.8 Other specified anxiety disorders; Z79.899 Other long term (current) drug therapy
CPT/HCPCS: 80053; 82150; 82272; 83690; 84145; 85025; 85651; 86140; 96365; 96366; 96367; 96375; 99284; C9803; G0328; J2405; U0003; U0005

== ENCOUNTER 2021-03-20 04:48 | Emergency (ER) | payer OTHER, SELFPAY ==
[2021-03-20 04:46] VITALS: BP 121/96; PULSE 93; RESP 18; TEMP 36.5; O2SAT 99; BMI 23.2
--- NOTE | 2021-03-20 05:01 | XR_ITS ---
PROCEDURE INFORMATION: Exam: XR Chest Exam date and time: 03/20/2021 5:01 AM Age: 35 years old Clinical indication: Patient HX: Abd pain, no chest complaints TECHNIQUE: Imaging protocol: XR of the chest. Views: 1 view. COMPARISON: CR CXR2V XR chest 2V 09/08/2018 8:49 PM FINDINGS: Lungs: Unremarkable. No consolidation. Pleural spaces: Unremarkable. No pleural effusion. No pneumothorax. Heart/Mediastinum: Unremarkable. No cardiomegaly. Bones/joints: Unremarkable. IMPRESSION: No acute findings.
--- NOTE | 2021-03-20 05:05 | CT_ITS ---
PROCEDURE INFORMATION: Exam: CT Abdomen And Pelvis With Contrast Exam date and time: 03/20/2021 5:05 AM Age: 35 years old Clinical indication: Abdominal pain; Localized; Upper; Prior surgery; Surgery date: <1 month; Surgery type: Ulcer; Additional info: Upper abdominal pain, ulcer repair 2 weeks ago TECHNIQUE: Imaging protocol: Computed tomography of the abdomen and pelvis with contrast. Radiation optimization: All CT scans at this facility use at least one of these dose optimization techniques: automated exposure control; mA and/or kV adjustment per patient size (includes targeted exams where dose is matched to clinical indication); or iterative reconstruction. Contrast material: ISOVUE; Contrast volume: 75 ml; Contrast route: IV; COMPARISON: CT ABDOMEN PELVIS W CON 03/05/2021 8:55 PM FINDINGS: Tubes, catheters and devices: Multiple surgical clips are present. Liver: Normal. No mass. Gallbladder and bile ducts: The gallbladder is distended, multiple stones are present. Pancreas: Normal. No ductal dilation. Spleen: Normal. No splenomegaly. Adrenal glands: Normal. No mass. Kidneys and ureters: Normal. No hydronephrosis. Stomach and bowel: There is a right lower quadrant colostomy present. Mild thickening of the gastric antrum and pylorus and proximal duodenum is noted. No evidence of perforation is seen. Appendix: No evidence of appendicitis. Intraperitoneal space: Unremarkable. No free air. No significant fluid collection. Vasculature: Unremarkable. No abdominal aortic aneurysm. Lymph nodes: Unremarkable. No enlarged lymph nodes. Urinary bladder: Unremarkable as visualized. Reproductive: Unremarkable as visualized. Bones/joints: Unremarkable. No acute fracture. Soft tissues: Unremarkable. IMPRESSION: 1. Distended gallbladder containing gallstones, consider right upper quadrant ultrasound for further evaluation as clinically indicated. 2. Persistent but significantly reduced thickening of the gastric antrum pylorus and proximal duodenum consistent with peptic ulcer disease. No evidence of perforation identified.
--- NOTE | 2021-03-20 05:05 | HMH.EDABDPAI ---
ED Disposition Clinical Impression: Upper abdominal pain, Gallstones Disposition: Home, Self-Care Condition on Discharge: Fair Instructions: DI for Acute Abdominal Pain, DI for Gallstones Additional Instructions: You have been evaluated for upper abdominal and epigastric pain. Work-up today shows gallstones and a distended gallbladder. We have discussed options for surgery, you would rather follow-up outpatient. Please follow-up with your primary care doctor within 24 to 48 hours for symptom recheck. Follow-up with a general surgeon like Dr. Noe. Take Protonix. Bentyl for cramps. Return to the emergency department for any new or worsening symptoms. Prescriptions: Pantoprazole Sodium [Protonix 20mg Tab] 40 mg PO DAILY #60 tab Transmission Status: Received by [facility] Referrals: Provider,Referral, [Primary Care Provider] - Time of Disposition: 07:29 - Critical Care Critical Care Time: No Attestation: On 03/20/21, the high probability of a clinically significant, sudden or life threatening deterioration of the following system(s) required my full and direct attention, intervention and personal management. The time I documented below is in addition to time spent performing reported procedures but includes the following listed in this critical care notation. Medical Decision Making - Medical Records Medical records reviewed: Yes: I reviewed the patient's medical records. - Brooks Inquiry Pt receiving controlled substance: No Vital Signs: 03/20/21 04:46 03/20/21 05:30 03/20/21 06:30 Temperature 97.7 F Temperature Source Oral Pulse Rate 82 79 Pulse Rate [Right Radial] 93 H Respiratory Rate 18 16 Blood Pressure 124/97 H 133/91 H Blood Pressure [Right Arm] 121/96 H Blood Pressure Mean [Right Arm] 104 Blood Pressure Source [Right Arm] Automatic Cuff Blood Pressure Position [Right Arm] Sitting 02 Sat by Pulse Oximetry 99 100 100 Oxygen Delivery Method Room Air - Lab Data Lab Results 03/20/21 04:52: WBC 6.2, RBC 3.65 L, Hgb 11.4 L, Hct 35.5 L, MCV 97.4 H, MCH 31.2, MCHC 32.0, RDW 13.9, Plt Count 568 H, MPV 7.6, Neut % (Auto) 65.0, Lymph % (Auto) 29.0, [place] % (Auto) 4.5, Eos % (Auto) 0.6, Baso % (Auto) 0.9, Neut # (Auto) 4.1, Lymph # (Auto) 1.8, [place] # (Auto) 0.3, Eos # (Auto) 0.0, Baso # (Auto) 0.1 03/20/21 04:52: PT 10.6, INR 0.93, APTT 23.8 03/20/21 04:52: Sodium 140, Potassium 3.8, Chloride 104, Carbon Dioxide 29, Anion Gap 10.8, BUN 11, Creatinine 0.90, Estimated Creat Clear 105, Estimated GFR 95, Est GFR ( Amer) 116, Glucose 108 H, Calcium 9.8, Total Bilirubin 0.3, AST 38, ALT 40, Alkaline Phosphatase 71, Total Protein 7.2 D, Albumin 4.2, Globulin 3.0, Albumin/Globulin Ratio 1.4, Lipase 49 03/20/21 05:38: Stool Occult Blood Negative Result diagrams: 03/20/21 04:52 03/20/21 04:52 Orders (Tests/Meds): ED MEDICATIONS Generic Name Dose Route Start Last Admin Trade Name Freq PRN Reason Stop Dose Admin Sodium Chloride 10 ml 03/20/21 05:17 Sodium Chloride 0.9% 10ml Vial IV 04/19/21 05:16 NEEDED PRN dilute protonix Discontinued Medications Generic Name Dose Route Start Last Admin Trade Name Freq PRN Reason Stop Dose Admin Iopamidol 75 ml 03/20/21 05:28 03/20/21 05:29 Iopamidol-370 (76%);100ml Bottle IV 03/20/21 05:29 75 ml ONCE ONE Administration Morphine Sulfate 4 mg 03/20/21 06:42 03/20/21 06:44 Morphine 4mg/Ml Syringe IV 03/20/21 06:43 4 mg ONCE ONE Administration Ondansetron HCl 4 mg 03/20/21 06:42 03/20/21 06:44 Ondansetron 4mg/2ml Vial IV 03/20/21 06:43 4 mg ONCE ONE Administration Pantoprazole Sodium 40 mg 03/20/21 05:17 03/20/21 05:34 Pantoprazole 40mg Vial IV 03/20/21 05:18 40 mg ONCE ONE Administration Sodium Chloride 10 ml 03/20/21 05:28 03/20/21 05:29 Sodium Chloride 0.9% 10ml Syr (Rad Only) IV 03/20/21 05:29 10 ml ONCE ONE Administration ORDERS Category
[2021-03-20 05:08] LABS: Basophils # 0.1 K/mm3 (0-0.2); Basophils % 0.9 % (0.1-2.0); Eosinophils % 0.6 % (0.1-12.0); Hematocrit 35.5 % (42.0-52.0); Hemoglobin 11.4 g/dL (14.1-18.0); Lymphocytes # 1.8 K/mm3 (0.7-4.5); Mean Corpuscular Hemoglobin 31.2 pg (27.0-31.2); Mean Corpuscular Volume 97.4 fl (80-94); Mean Platelet Volume 7.6 fl (7.4-10.4); Monocytes # 0.3 K/mm3 (0.1-1.0); Monocytes % 4.5 % (1.7-9.3); Neutrophils # 4.1 K/mm3 (1.8-7.8); Platelet Count 568 K/mm3 (142-424); Red Blood Count 3.65 M/mm3 (4.60-6.20); Red Cell Distribution Width 13.9 % (11.5-17.5); White Blood Count 6.2 K/mm3 (4.8-10.8)
[2021-03-20 05:11] LABS: Chloride 104 mmol/L (98-107); Potassium 3.8 mmoL/L (3.5-5.1); Sodium 140 mmol/L (136-145)
[2021-03-20 05:13] LABS: Alanine Aminotransferase 40 U/L (12-78); Alkaline Phosphatase 71 U/L (38-126); Aspartate Amino Transferase 38 U/L (17-59); Bilirubin,Total 0.3 mg/dl (0.2-1.3); Blood Urea Nitrogen 11 mg/dl (9-20); Creatinine Clearance Estimated 105 mL/min (50-200); Estimated Glomerular Filt Rate 95 ml/min (>60); GFR (African American) 116 ML/MIN (>60)
[2021-03-20 05:14] LABS: Albumin Level 4.2 g/dl (3.5-5.0); Albumin/Globulin Ratio 1.4 (1.1-1.8); Anion Gap 10.8 mEq/L (5-15); Calcium 9.8 mg/dl (8.4-10.2); Carbon Dioxide 29 mmol/L (22.0-30.0); Glucose 108 mg/dl (74-100); Lipase 49 U/L (23-300); Total Protein,Serum 7.2 g/dl (6.3-8.2)
[2021-03-20 05:15] LABS: Activated Partial Thrombo Time 23.8 seconds (22.8-30.6); INR 0.93 (0.9-1.1); Prothrombin Time 10.6 seconds (10.1-12.5)
[2021-03-20 05:30] VITALS: BP 124/97; PULSE 82; RESP 16; O2SAT 100
[2021-03-20 05:46] LABS: Occult Blood,Stool Negative (Negative)
[2021-03-20 06:30] VITALS: BP 133/91; PULSE 79; O2SAT 100
--- NOTE | 2021-03-20 06:41 | US_ITS ---
PROCEDURE: US ABDOMEN LIMITED CLINICAL INDICATION: ruq pain COMPARISON: CT CT ABDOMEN PELVIS W CON from 03/20/2021 FINDINGS: PANCREAS: Unremarkable. No obvious mass or abnormal fluid collection. No ductal dilatation LIVER: No focal liver lesions demonstrated. Homogeneous echogenicity. No intrahepatic biliary ductal dilatation evident. There is appropriate direction of blood flow within a non dilated portal vein RIGHT KIDNEY: Unremarkable. Normal size and echogenicity. No hydronephrosis GALLBLADDER: 2 cm shadowing stone is present in the neck of the gallbladder. The gallbladder is mildly distended at 10 x 4 cm. No gallbladder wall thickening, pericholecystic fluid, or biliary dilatation. Common bile duct is 4 mm. IMPRESSION: Prominent gallstone in the neck of the gallbladder with distended gallbladder. Dictated by: Shay Ronquillo MD 03/20/2021 08:17 Shay Ronquillo MD in OV 03/20/2021 08:17
[2021-03-20 09:02] VITALS: BP 133/91; PULSE 79; RESP 16; TEMP 36.5; O2SAT 100
== END 2021-03-20 09:04 | disposition home or self-care (01) ==
PROVIDERS: Emergency Provider Emergency Medicine
DX: K80.20 Calculus of gallbladder without cholecystitis without obstruction (principal); K50.90 Crohn's disease, unspecified, without complications; F41.8 Other specified anxiety disorders
CPT/HCPCS: 71045; 74177; 76705; 80053; 82272; 83690; 85025; 85610; 85730; 96374; 96375; 99283; G0328; J2405; Q9967

== ENCOUNTER 2021-11-08 16:24 | Emergency (ER) | payer OTHER, SELFPAY ==
[2021-11-08 16:45] VITALS: BP 116/75; PULSE 75; RESP 16; TEMP 37.4; O2SAT 96; BMI 22.1
--- NOTE | 2021-11-08 17:05 | HMH.EDUTC ---
[facility] Disposition Clinical Impression: Exposure to COVID-19 virus Disposition: Home, Self-Care Condition on Discharge: Good Instructions: Preventing the Spread of Coronavirus Discharge Instructions Additional Instructions: Drink plenty of fluids. Take tylenol for pain or fever. Return if you begin to have difficulty breathing. Follow up with your regular doctor. GO TO THE ER FOR ANY WORSENING SYMPTOMS Quarantine until you know the results of your covid-19 test. Notify your school or workplace of your results and follow their instructions regarding return to work/school. Referrals: Laura Marlow MD [Primary Care Provider] - Time of Disposition: 17:12 Medical Decision Making - Medical Records Medical records reviewed: No: I reviewed the patient's medical records. - Brooks Inquiry Pt receiving controlled substance: No Vital Signs: 11/08/21 16:45 11/08/21 17:23 Temperature 99.3 F 99.3 F Temperature Source Oral Pulse Rate 75 Pulse Rate [Left] 75 Respiratory Rate 16 16 Blood Pressure 116/75 Blood Pressure [Right Arm] 116/75 Blood Pressure Mean [Right Arm] 88 Blood Pressure Position Sitting 02 Sat by Pulse Oximetry 96 Oxygen Delivery Method Room Air - Lab Data Lab results reviewed: Yes: I reviewed the patient's lab results. [facility] HPI - General Stated complaint: covid test Time Seen by Provider: 11/08/21 16:50 Description of Symptoms (Recalled from Triage Doc. by RN): patient comes in for a covid test. no symptoms but exposed. HEENT Symptoms (Recalled from RN notes): No Resp Symptoms (Recalled from RN notes): No Skin Symptoms (Recalled from RN notes): No MS Symptoms (Recalled from RN notes): No Functional Status (Recalled from RN notes): n/a - History of Present Illness Provider Complaint: He has been exposed to covid-19. He is starting to feel bad but he has no specific symptoms. - Related Data Home Medications Medication Instructions Recorded Confirmed Ketorolac Tromethamine [Toradol 10 mg PO Q6H 03/06/21 03/06/21 10mg tablet] Previous Rx's Medication Instructions Recorded Dicyclomine HCl [Bentyl 10mg 10 mg PO Q8HP PRN #30 cap 07/07/20 capsule] Pantoprazole Sodium [Protonix 20mg 40 mg PO DAILY #60 tab 03/20/21 Tab] Allergies Allergy/AdvReac Type Severity Reaction Status Date / Time infliximab [INFLIXIMAB] Allergy Unknown Verified 11/08/21 16:50 metronidazole [METRONIDAZOLE] Allergy Unknown Verified 11/08/21 16:50 naproxen [NAPROXEN] Allergy Unknown Verified 11/08/21 16:50 promethazine [PROMETHAZINE] Allergy Unknown Verified 11/08/21 16:50 propofol [PROPOFOL] Allergy Unknown Verified 11/08/21 16:50 - Worker's Comp Is this a Worker's Comp case?: No [facility] History - Hepatitis A Screen Attestation statement:: This patient has been screened for Hepatitis A risk factors. I have reviewed the patient's past medical history: Yes Medical History: Reports:: Anxiety, Depression, Gastrointestinal Bleed, Ulcer Denies:: Cancer, Diabetes Mellitus Type 1, Diabetes Mellitus Type 2, MRSA Other Medical History: Reports: Anemia, Other. Denies: Blood Transfusion Reaction Comment: chrones Other Surgeries: Yes: Colon Resection, Colostomy, Other Amputation: No Fractures: No - Social History Smoking Status: Never smoker Tobacco Type: cigarettes Alcohol Intake: never Occupational Status: unemployed Housing: house - Psychiatric History Pschychiatric History:: Reports:: Anxiety, Depression Family Hx:: No significant family history ROS Obtained: Yes All systems reviewed & no additional complaints - Constitutional Constitutional: Denies chills, Denies fever(s), Denies poor appetite, Reports malaise - Eyes Eyes: Denies eye discharge - ENT Ears, Nose, Mouth, and Throat: Denies sore throat - Cardiovascular Cardiovascular: Denies chest pain - Respiratory Respiratory: Denies chest congestion, Denies cough Physical Exam - Gener
[2021-11-08 17:23] VITALS: BP 116/75; PULSE 75; RESP 16; TEMP 37.4; O2SAT 96
== END 2021-11-08 17:23 | disposition home or self-care (01) ==
PROVIDERS: Emergency Provider Nurse Practitioner Family; PCP Family Medicine
DX: Z20.822 Contact with and (suspected) exposure to COVID-19 (principal)
CPT/HCPCS: 99212; C9803; G0463; U0003; U0005

== ENCOUNTER 2021-11-15 16:43 | Emergency (ER) | payer OTHER, SELFPAY ==
[2021-11-15 16:58] VITALS: BP 131/90; PULSE 91; RESP 19; TEMP 37.2; O2SAT 96; BMI 22.8
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
[2021-11-15 17:20] VITALS: BP 131/90; PULSE 91; RESP 19; TEMP 37.2; O2SAT 96
== END 2021-11-15 17:20 | disposition home or self-care (01) ==
PROVIDERS: Emergency Provider Nurse Practitioner; PCP Family Medicine
DX: Z03.89 Encounter for observation for other suspected diseases and conditions ruled out (principal); K92.2 Gastrointestinal hemorrhage, unspecified; D64.9 Anemia, unspecified; Z20.822 Contact with and (suspected) exposure to COVID-19; L98.499 Non-pressure chronic ulcer of skin of other sites with unspecified severity; F32.A Depression, unspecified; F41.9 Anxiety disorder, unspecified; Z88.6 Allergy status to analgesic agent; Z88.8 Allergy status to other drugs, medicaments and biological substances
CPT/HCPCS: 99212; C9803; G0463; U0003; U0005

== ENCOUNTER 2022-01-01 10:55 | Emergency (ER) | payer OTHER, SELFPAY ==
[2022-01-01] VITALS (14 sets, daily range): BP systolic 105–131; BP diastolic 70–88; PULSE 56–78; RESP 18; TEMP 36.7; O2SAT 96–100; BMI 21.1
[2022-01-01 11:20] LABS: Alanine Aminotransferase 19 U/L (12-78); Albumin/Globulin Ratio 1.5 (1.1-1.8); Alkaline Phosphatase 56 U/L (38-126); Anion Gap 9.1 mEq/L (5-15); Aspartate Amino Transferase 29 U/L (17-59); Bilirubin,Total 0.3 mg/dl (0.2-1.3); Blood Urea Nitrogen 10 mg/dl (9-20); Calcium 8.5 mg/dl (8.4-10.2); Carbon Dioxide 29 mmol/L (22.0-30.0); Chloride 107 mmol/L (98-107); Creatinine Clearance Estimated 97 mL/min (50-200); Estimated Glomerular Filt Rate 95 ml/min (>60); GFR (African American) 115 ML/MIN (>60); Globulin 2.6 g/dL (1.3-3.2); Glucose 96 mg/dl (74-100); Potassium 4.1 mmoL/L (3.5-5.1); Sodium 141 mmol/L (136-145); Total Protein,Serum 6.6 g/dl (6.3-8.2)
[2022-01-01 11:21] LABS: Basophils % 0.3 % (0.1-2.0); Eosinophils # 0.1 K/mm3 (0.0-0.4); Eosinophils % 1.8 % (0.1-12.0); Lymphocytes # 1.5 K/mm3 (0.7-4.5); Lymphocytes % 29.3 % (10-50); Mean Corpuscular HGB Conc 30.4 g/dL (31.8-35.4); Mean Corpuscular Hemoglobin 29.9 pg (27.0-31.2); Mean Corpuscular Volume 98.2 fl (80-94); Mean Platelet Volume 8.2 fl (7.4-10.4); Monocytes # 0.3 K/mm3 (0.1-1.0); Monocytes % 6.1 % (1.7-9.3); Neutrophils # 3.2 K/mm3 (1.8-7.8); Neutrophils % 62.4 % (37.0-80.0); Platelet Count 256 K/mm3 (142-424); Red Blood Count 4.68 M/mm3 (4.60-6.20); Red Cell Distribution Width 13.6 % (11.5-17.5); White Blood Count 5.2 K/mm3 (4.8-10.8)
--- NOTE | 2022-01-01 11:28 | HMH.EDGENADL ---
Discharge Plan Disposition Patient Disposition: Home, Self-Care Condition: Fair Prescriptions Prescriptions: New ibuprofen 600 mg tablet 600 mg PO Q8H Qty: 20 0RF ondansetron 4 mg tablet,disintegrating 4 mg PO Q8H PRN (Reason: nausea and vomiting) 3 Days Qty: 10 0RF tamsulosin [Flomax] 0.4 mg capsule 0.4 mg PO HS Qty: 5 0RF hydrocodone-acetaminophen 5-325 mg tablet 1 tab PO Q6H PRN (Reason: pain) Qty: 12 0RF No Action dicyclomine 10 MG capsule 10 mg PO Q8HP PRN (Reason: abdominal pain) Qty: 30 0RF Label Comments: pt has not picked up yet ketorolac 10 MG tablet 10 mg PO Q6H Label Comments: pt has not picked up yet pantoprazole 20 MG tablet,delayed release (DR/EC) 40 mg PO DAILY Qty: 60 0RF Activity Restrictions/Add. Instructions Additional Instructions/Restrictions: You have been evaluated for abdominal pain, diagnosed with a kidney stone. It is 3 mm in size. Should pass. Please take ibuprofen 600 mg as scheduled. Take Flomax as scheduled. Take Pimento for severe pain. Zofran for nausea. Follow-up with your primary care doctor. Follow-up with Dr. Villatoro urology. Return to the emergency department at once for any new or worsening symptoms, fevers, vomiting, other concerns. Clinical Impressions Clinical Impression: Kidney stone Instructions Patient Instructions: DI for Kidney Stones Discharge ED Provider: Mirian Topete Adult HPI General Chief complaint: Abdominal Pain Stated complaint: ABD PAIN Time Seen by Provider: 01/01/22 11:00 Mode of Arrival: EMS Source of Information: Patient Limitations: No Limitations Description of Symptoms (Recalled from ER Triage Doc. by RN): c/o upper and lower abdomen pain that started this morning and some nausea that started on arrival. Deniess any diarrhea History of Present Illness HPI narrative: 36-year-old male presenting to the emergency department with abdominal pain. Pain is located all over the abdomen. Started this morning around 2 hours prior to arrival. When he woke up he felt generally unwell. Developed cramping pain that is located in the mid abdomen. Radiates slightly to the lower abdomen and to the low back. Has been constant since onset. Nothing seems to make it better or worse. No medications prior to arrival. Ate well yesterday without difficulty. No fevers, chills, nausea, vomiting. He has an ileostomy, output has been good. No pain or burning with urination. Related Data Home Medications Medication Instructions Recorded Confirmed ketorolac 10 mg tablet 10 mg PO Q6H Pain 03/06/21 03/06/21 Previous Rx's Medication Instructions Recorded dicyclomine 10 mg capsule 10 mg PO Q8HP PRN abdominal pain 07/07/20 #30 caps pantoprazole 20 mg tablet,delayed 40 mg PO DAILY #60 tabs 03/20/21 release hydrocodone 5 mg-acetaminophen 325 1 tab PO Q6H PRN pain #12 tabs 01/01/22 mg tablet ibuprofen 600 mg tablet 600 mg PO Q8H #20 tabs 01/01/22 ondansetron 4 mg disintegrating 4 mg PO Q8H PRN nausea and 01/01/22 tablet vomiting 3 days #10 tabs tamsulosin 0.4 mg capsule (Flomax) 0.4 mg PO HS #5 caps 01/01/22 Allergies Allergy/AdvReac Type Severity Reaction Status Date / Time infliximab [INFLIXIMAB] Allergy Unknown Verified 11/08/21 16:50 metronidazole [METRONIDAZOLE] Allergy Unknown Verified 11/08/21 16:50 naproxen [NAPROXEN] Allergy Unknown Verified 11/08/21 16:50 promethazine [PROMETHAZINE] Allergy Unknown Verified 11/08/21 16:50 propofol [PROPOFOL] Allergy Unknown Verified 11/08/21 16:50 PFSH PFSH Social History Smoking Status: Never smoker second hand exposure: No alcohol intake: never current occupational status: unemployed Travel in the last 8 weeks: None housing: house current occupational exposures/hazards: No caffeine: Yes ROS Obtained: Yes All systems reviewed & no additional complaints except as documented Constitutional Constitutional: Denies a
[2022-01-01 11:45] LABS: Lipase 42 U/L (23-300)
--- NOTE | 2022-01-01 11:58 | PC.NURSE ---
PT AMBULATING TO BR
--- NOTE | 2022-01-01 12:51 | PC.NURSE ---
PT C/O OF PAIN
[2022-01-01 13:20] LABS: Microscopic, Urine URINE MICROSCOPIC (MICROSCOPIC)
--- NOTE | 2022-01-01 13:21 | PC.NURSE ---
URINE SENT TO LAB
[2022-01-01 13:25] LABS: Appearance,Urine CLEAR (Clear); Bilirubin,Urine Negative (Negative); Blood, Urine Negative (Negative); Color,Urine YELLOW (Yellow); Glucose,Urine (UA) Negative (Negative); Ketones,Urine Negative (Negative); Leukocyte Esterase,Urine Negative (Negative); Nitrate,Urine Negative (Negative); Protein,Urine Negative (Negative); Specific Gravity, Urine >= 1.030 (1.005-1.030); Urobilinogen,Urine 0.2 EU/dl (0.2)
--- NOTE | 2022-01-01 13:38 | PC.NURSE ---
ED MD AT BEDSIDE TO REEVALUATE PT
--- NOTE | 2022-01-01 13:39 | CT_ITS ---
FINAL REPORT TECHNIQUE: After the administration of intravenous contrast, axial images were obtained through the abdomen and pelvis by computed tomography. The study was performed with techniques to keep radiation dose as low as reasonably achievable, (ALARA). Individual dose reduction techniques using automated exposure control or adjustment of mA and/or kV according to the patient's size were employed. CLINICAL HISTORY: abdominal pain COMPARISON: 03/20/2021 FINDINGS: Abdomen: There is mild bibasilar scar or atelectasis. The liver is normal in size and attenuation. There is a large gallstone. The spleen is unremarkable. The adrenals are normal. The pancreas is unremarkable. The aorta is normal in caliber. There is no free fluid or adenopathy. There is a less than 3 mm nonobstructing right renal stone. There is mild right hydronephrosis and hydroureter secondary to a 3 mm right UVJ stone. Pelvis: Right pelvic ostomy is identified. The appendix is not identified. There are postoperative changes in the region of the rectum with stable soft tissue in this area, favor post treatment change. The urinary bladder is unremarkable. There is no free fluid or adenopathy. IMPRESSION: Mild right hydronephrosis and hydroureter secondary to an obstructing stone in the right UVJ. Right renal stone. Cholelithiasis. Reviewed, Interpreted and Dictated by Leonard Arango III, MD Transcribed by Belkis Moore Authenticated and [facility]
[2022-01-01 13:41] LABS: Bacteria,Urine Trace /lpf; Mucus,Urine Trace /lpf; RBC,Urine Occasional #/hpf (0-3); Squamous Epithelial Cell,Urine Occasional #/hpf (0-5)
--- NOTE | 2022-01-01 13:49 | PC.NURSE ---
pt to CT
--- NOTE | 2022-01-01 13:52 | PC.NURSE ---
GONE TO CT
--- NOTE | 2022-01-01 14:40 | PC.NURSE ---
pt stating that the pain has eased
== END 2022-01-01 17:23 | disposition home or self-care (01) ==
PROVIDERS: Emergency Provider Emergency Medicine; PCP Family Medicine
DX: N20.0 Calculus of kidney (principal); Z88.8 Allergy status to other drugs, medicaments and biological substances
CPT/HCPCS: 74177; 80053; 81001; 83690; 85025; 96374; 96375; 99284; J2405; Q9967

== ENCOUNTER 2022-03-07 08:42 | Emergency (ER) | payer OTHER, SELFPAY ==
[2022-03-07 09:20] VITALS: BP 117/72; PULSE 83; RESP 19; TEMP 37.1; O2SAT 98; BMI 21.1
--- NOTE | 2022-03-07 09:40 | EXP.UTC ---
Discharge Plan Disposition Patient Disposition: Home, Self-Care Condition: Good Prescriptions Prescriptions: New azithromycin [Zithromax Z-Aguila] 250 mg tablet See Rx Instructions .ROUTE .COMPLEX 5 Days Qty: 6 0RF Rx Instructions: For 250 mg dose pack: take 500 mg today (day 1), then 250 mg for 4 days (days 2-5) No Action dicyclomine 10 MG capsule 10 mg PO Q8HP PRN (Reason: abdominal pain) Qty: 30 0RF Label Comments: pt has not picked up yet ketorolac 10 MG tablet 10 mg PO Q6H Label Comments: pt has not picked up yet pantoprazole 20 MG tablet,delayed release (DR/EC) 40 mg PO DAILY Qty: 60 0RF ibuprofen 600 mg tablet 600 mg PO Q8H Qty: 20 0RF ondansetron 4 mg tablet,disintegrating 4 mg PO Q8H PRN (Reason: nausea and vomiting) 3 Days Qty: 10 0RF tamsulosin [Flomax] 0.4 mg capsule 0.4 mg PO HS Qty: 5 0RF hydrocodone-acetaminophen 5-325 mg tablet 1 tab PO Q6H PRN (Reason: pain) Qty: 12 0RF Referrals Follow up/Referrals: Laura Marlow MD [Primary Care Provider] - See instructions Activity Restrictions/Add. Instructions Additional Instructions/Restrictions: *Monitor Temp, Over the counter Motrin or Tylenol as directed/as needed Tylenol every 4 hours and Motrin every 6 hours (as long as your family doctor has told you that you can take it) for fever or pain. and straight to ER if unable to lower temp less than 101.0 after medication given *Warm salt water gargles may help to soothe the throat *Throat Lozenges? *Warm fluids like tea with honey may help to soothe the throat? *Sleep elevated *Humidifier/Vaporizer efore driving, caring for small child, or sending your child to school. Not other antihistamines/allergy medications while taking bromfed Your throat swab was sent for culture. Those results are typically sent to your primary care. Be sure to follow up in 2-3 days with your family doctor/primary care physician if no improvement so they can review those result and treat if necessary. If you don?t have a primary care doctor, I recommend you get one but in the mean time, you will have to return to a walk in clinic Follow up IMMEDIATELY for new or worsening symptoms or no Noticeable improvement over the next 48-72 hours. 911 for difficulty breathing or swallowing Clinical Impressions Clinical Impression: Sinusitis Qualifiers: Sinusitis location: unspecified location Chronicity: unspecified Qualified Code(s): J32.9 - Chronic sinusitis, unspecified Instructions Patient Instructions: Sinusitis, DI for Sinusitis Discharge ED Provider: Gertrudis Pantoja [facility] General Stated complaint: sore throat, sinus drainage, ear pain Mode of Arrival: Ambulatory Source of Information: Patient Limitations: No Limitations Time Seen by Provider: 03/07/22 09:40 Description of Symptoms (Recalled from Triage Doc. by RN): PATIENT C/O SORE THROAT, SINUS CONGESTION, FEVER SINCE YESTERDAY HEENT Symptoms (Recalled from RN notes): Yes Resp Symptoms (Recalled from RN notes): No Skin Symptoms (Recalled from RN notes): No MS Symptoms (Recalled from RN notes): No Functional Status (Recalled from RN notes): WNL History of Present Illness Provider Complaint: Patient states that he has been having sinus congestion and pressure for close to a week and yesterday it got worse States that he started having sore throat and feeling like he had a fever States that his mother is coming home from the hospital on Thursday so today he came in to get checked so he can get himself well before she gets home Related Data Home Medications Medication Instructions Recorded Confirmed ketorolac 10 mg tablet 10 mg PO Q6H Pain 03/06/21 03/06/21 Previous Rx's Medication Instructions Recorded dicyclomine 10 mg capsule 10 mg PO Q8HP PRN abdominal pain 07/07/20 #30 caps pantoprazole 20 mg tablet,delayed 40 mg PO DAILY #60 tabs 03/20/21 release hydrocodone 5 mg-acetamin
[2022-03-07 09:45] LABS: UTC Strep Screen (Rapid) Negative (Negative)
[2022-03-07 09:47] LABS: UTC Influenza A Antigen Negative (Negative); UTC Influenza B Antigen Negative (Negative)
[2022-03-07 10:03] VITALS: BP 117/72; PULSE 83; RESP 19; TEMP 37.1; O2SAT 98
== END 2022-03-07 10:05 | disposition home or self-care (01) ==
PROVIDERS: Emergency Provider Nurse Practitioner; PCP Family Medicine
DX: J32.9 Chronic sinusitis, unspecified (principal)
CPT/HCPCS: 87804; 87880; 99212; C9803; G0463; U0003; U0005

== ENCOUNTER 2022-06-26 11:44 | Emergency (ER) | payer OTHER, SELFPAY ==
[2022-06-26 12:00] VITALS: BP 121/91; PULSE 90; RESP 20; TEMP 36.6; O2SAT 95; BMI 18.8
--- NOTE | 2022-06-26 12:08 | XR_ITS ---
FINAL REPORT CLINICAL HISTORY: trauma, minor, left anterior rib pain, near T7 FINDINGS: Four views of the left ribs were obtained. The heart and mediastinum are normal. The lungs are clear. There is no pneumothorax. No left rib fracture is identified. IMPRESSION: No fracture identified. Reviewed, Interpreted and Dictated by Leidy Randolph MD Transcribed by Belkis Moore Authenticated and [facility]
--- NOTE | 2022-06-26 12:08 | XR_ITS ---
FINAL REPORT CLINICAL HISTORY: minor trauma, hx compression fx COMPARISON: 09/12/2018 FINDINGS: AP and lateral views of the thoracic spine were obtained. There is no acute fracture or acute malalignment. There are changes of vertebroplasty in the midthoracic spine, unchanged. There are several additional mid thoracic spine deformities which are stable. There is multilevel degenerative disc disease. The paraspinal soft tissues are normal. IMPRESSION: Degenerative changes as above. If clinical concern persists, recommend CT or MRI. Reviewed, Interpreted and Dictated by Leidy Randolph MD Transcribed by Belkis Moore Authenticated and [facility]
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
--- NOTE | 2022-06-26 12:40 | PC.NURSE ---
From XR, ambulatory without complications
--- NOTE | 2022-06-26 14:04 | PC.NURSE ---
checked on pt hes okay standing in the room looking over his mother
[2022-06-26 16:05] VITALS: BP 129/79; PULSE 71; RESP 17; TEMP 36.8; O2SAT 98
== END 2022-06-26 16:05 | disposition home or self-care (01) ==
PROVIDERS: Emergency Provider Emergency Medicine
DX: S20.219A Contusion of unspecified front wall of thorax, initial encounter (principal); S23.3XXA Sprain of ligaments of thoracic spine, initial encounter; Y04.0XXA Assault by unarmed brawl or fight, initial encounter; F41.8 Other specified anxiety disorders; Z87.440 Personal history of urinary (tract) infections; Z90.49 Acquired absence of other specified parts of digestive tract
CPT/HCPCS: 71100; 72070; 99284

== ENCOUNTER 2023-08-29 16:54 | Emergency (ER) | payer OTHER, SELFPAY ==
[2023-08-29 17:05] VITALS: BP 119/84; PULSE 104; RESP 18; TEMP 36.8; O2SAT 96; BMI 20.9
--- NOTE | 2023-08-29 17:09 | EXP.UTC ---
Discharge Plan Disposition Patient Disposition: Home, Self-Care Condition: Good Prescriptions Prescriptions: New azithromycin [Zithromax] 250 mg tablet 250 mg PO UD DOSE PK Qty: 6 0RF Rx Instructions: Take two (2) tablets today, then one (1) tablet days #2 thru #5 No Action pantoprazole 20 MG tablet,delayed release (DR/EC) 20 mg PO DAILY Referrals Follow up/Referrals: Kendrick Marlow MD [Primary Care Provider] - See instructions Activity Restrictions/Add. Instructions Additional Instructions/Restrictions: Drink plenty of fluids. Take tylenol or ibuprofen for pain or fever. Take the medications as directed. Follow up with your regular doctor. GO TO THE ER FOR ANY WORSENING SYMPTOMS Clinical Impressions Clinical Impression: Acute viral syndrome, Sinusitis Instructions Patient Instructions: DI for Sinusitis Discharge ED Provider: Leonel Hyman [facility] [place] General Stated complaint: sore throat,sinus problems,fever Time Seen by Provider: 08/29/23 17:09 Related Data Home Medications Medication Instructions Recorded Confirmed pantoprazole 20 mg tablet,delayed 20 mg PO DAILY 08/29/23 08/29/23 release Previous Rx's Medication Instructions Recorded azithromycin 250 mg tablet 250 mg PO UD DOSE PK #6 tabs 08/29/23 (Zithromax) Allergies Allergy/AdvReac Type Severity Reaction Status Date / Time infliximab [INFLIXIMAB] Allergy Unknown Verified 11/08/21 16:50 metronidazole [METRONIDAZOLE] Allergy Unknown Verified 11/08/21 16:50 naproxen [NAPROXEN] Allergy Unknown Verified 11/08/21 16:50 promethazine [PROMETHAZINE] Allergy Unknown Verified 11/08/21 16:50 propofol [PROPOFOL] Allergy Unknown Verified 11/08/21 16:50 [facility] Disclaimer: The information contained in this section may have been updated after the patient was seen, as this information can be updated by other users. Medical History (Updated 08/29/23 @ 17:59 by Leonel Hyman APRN) Crohn's disease Kidney stone Ileostomy in place Urinary tract infection Depression Anxiety Surgical History History of colectomy History of appendectomy Social History (Updated 03/07/22 @ 09:35 by Twila Woodard RN) Smoking Status: Never smoker second hand exposure: No alcohol intake: never current occupational status: unemployed Travel in the last 8 weeks: None housing: house current occupational exposures/hazards: No caffeine: Yes ROS Obtained: Yes All systems reviewed & no additional complaints except as documented Constitutional Constitutional: Reports poor appetite Eyes Eyes: Reports system reviewed and no additional complaints, except as documented ENT Ears, Nose, Mouth, and Throat: Reports as per HPI Cardiovascular Cardiovascular: Reports system reviewed and no additional complaints, except as documented and Denies chest pain Respiratory Respiratory: Denies shortness of breath, Denies chest congestion, Reports cough, Denies stridor and Denies wheezing Gastrointestinal Gastrointestingal: Reports system reviewed and no additional complaints, except as documented; Denies abdominal pain, diarrhea or vomiting Musculoskeletal Musculoskeletal: Reports system reviewed and no additional complaints, except as documented and Denies arthralgias Integumentary/Breasts Skin/Breast: Reports system reviewed and no additional complaints, except as documented and Denies rash Neurologic Neurologic: Denies paresthesias Allergic/Immunologic Allergic/Immunologic: Denies wheezing Physical Exam General General appearance: alert and in no apparent distress Head Head exam: atraumatic, normocephalic and normal inspection Eye Eye exam: Present normal appearance; Absent PERRL or EOMI ENT ENT exam: Present mucous membranes moist and normal external ear exam Expanded ENT Exam TM/Canal exam: Bilateral TM: erythema, bulging and effusion Nose exam: Absent sinus tenderness Nasal speculum exam: Bilateral: normal Mouth exam: Present normal external inspection and other; Absent drooling Teeth exam: Present normal inspection Throat exam: Present tonsillar erythema and tonsillomegaly Neck Neck exam: Present normal inspection, full ROM and trachea midline; Absent tenderness, meningismus or lymphadenopathy Chest Chest inspection: Present normal inspection and symmetric chest wall rise; Absent tenderness Respiratory Respiratory exam: Present normal lung sounds bilaterally; Absent respiratory distress, wheezes or stridor Cardiovascular Cardiovascular exam: Present regular rate, normal rhythm and normal heart sounds; Absent tachycardia or irregular rhythm Abdominal Exam Abdominal exam: Present soft and normal bowel sounds; Absent distention, tenderness, guarding, rebound or rigidity Extremities Exam Extremities exam: Present normal inspection and normal capillary refill; Absent tenderness, joint swelling or calf tenderness Back Exam Back exam: Present normal inspection and full ROM; Absent tenderness, CVA tenderness (R) or CVA tenderness (L) Neurological Exam Neurological exam: Present alert, oriented X3, CN II-XII intact, normal gait and reflexes normal; Absent motor sensory deficit Psychiatric Psychiatric exam: Present normal affect and normal mood Skin Skin exam: Present warm, dry, intact and normal color Lymphatic Lymphatic Findings: no adenopathy Medical Decision Making Medical Records Medical records reviewed: No I reviewed the patient's medical records. Brooks Inquiry Pt receiving controlled substance: No Lab Data Lab results reviewed: Yes I reviewed the patient's lab results.
[2023-08-29 17:26] LABS: UTC Strep Screen (Rapid) Negative (Negative)
[2023-08-29 17:28] LABS: UTC Influenza A Antigen Negative (Negative); UTC Influenza B Antigen Negative (Negative)
[2023-08-29 18:00] VITALS: BP 119/84; PULSE 104; RESP 18; TEMP 36.8; O2SAT 96
== END 2023-08-29 18:08 | disposition home or self-care (01) ==
PROVIDERS: Emergency Provider Nurse Practitioner Family; PCP Psychiatry & Neurology Sleep Medicine
DX: J01.90 Acute sinusitis, unspecified (principal); B34.9 Viral infection, unspecified
CPT/HCPCS: 87635; 87804; 87880; 99212; 99214; G0463

== ENCOUNTER 2023-10-17 22:06 | Emergency (ER) | payer SELFPAY ==
[2023-10-17 22:07] VITALS: BP 136/104; PULSE 81; RESP 18; TEMP 36.8; O2SAT 98; BMI 21.1
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
[2023-10-17 23:28] VITALS: BP 136/104; PULSE 81; RESP 18; TEMP 36.8; O2SAT 98
== END 2023-10-17 23:30 | disposition home or self-care (01) ==
PROVIDERS: Emergency Provider Emergency Medicine; PCP Family Medicine
DX: Z04.1 Encounter for examination and observation following transport accident (principal); V49.40XA Driver injured in collision with unspecified motor vehicles in traffic accident, initial encounter; Y92.410 Unspecified street and highway as the place of occurrence of the external cause
CPT/HCPCS: 99281